=== PATIENT | male | born 1950 | race Caucasian/White ===

== ENCOUNTER 2017-11-26 14:48 | Inpatient (IN) | payer BC ==
[2017-11-26] MEDS ORDERED: Aspirin TAB* 325 MG PO ONE (15:19)
[2017-11-26 15:51] LABS: ABS Basophils 0.1 10^3/ul (0-0.2); ABS Eosinophils 0.1 10^3/ul (0-0.6); ABS Lymphocytes 1.9 10^3/ul (1.0-4.8); ABS Monocytes 0.8 10^3/ul (0-0.8); ABS Neutrophils 3.6 10^3/ul (1.5-7.7); ABS Nucleated RBC 0 10^3/ul; Eosinophil % 2.2 % (0-6); Hematocrit 47 % (42-52); Hemoglobin 16.3 g/dl (14.0-18.0); Lymphocyte % 28.9 % (25-47); Mean Corpuscular HGB Conc 35 g/dl (31-36); Mean Corpuscular Hemoglobin 31 pg (27-31); Mean Corpuscular Volume 89 fL (80-94); Mean Platelet Volume 9 um3 (7.4-10.4); Nucleated Red Blood Cells % 0.3; Platelet Count 203 10^3/ul (150-450); Red Blood Count 5.23 10^6/ul (4.0-5.4); Red Cell Distribution Width 13 % (10.5-15); White Blood Count 6.6 10^3/ul (3.5-10.8)
--- NOTE | 2017-11-26 15:54 | RAD ---
INDICATION: Chest pain. COMPARISON: Comparison is made with prior chest x-ray study from May 13, 2013. TECHNIQUE: A portable view of the chest was obtained. FINDINGS: Cardiac and mediastinal contours appear to be within normal limits. The lungs are clear. No pleural effusion is seen. IMPRESSION: NO EVIDENCE FOR ACUTE DISEASE.
[2017-11-26 16:00] LABS: INR 0.98 (0.77-1.02)
[2017-11-26] MEDS: Nitroglycerin TAB 0.4 MG* 0.4 MG TAB SL ONE ×2 (16:17→20:05)
[2017-11-26] MEDS ORDERED: Nitroglycerin TAB 0.4 MG* 0.4 MG TAB SL ONE (17:01)
[2017-11-26] MEDS ORDERED: Heparin DRIP 25,000 UNITS(*) 25,000 UNITS/500 ML BAG IVPB SCH (17:15)
[2017-11-26] MEDS ORDERED: Atorvastatin* 80 MG TAB PO ONE (17:18)
[2017-11-26] MEDS ORDERED: Ticagrelor* 90 MG TAB PO ONE (17:18)
[2017-11-26] MEDS ORDERED: Acetaminophen TAB* 325 MG PO PRN (17:20)
[2017-11-26] MEDS ORDERED: Heparin VIAL(*) 5000 UNITS/ML VIAL (FIVE THOUSAND) IV SCH (18:00)
[2017-11-26] MEDS ORDERED: Nitroglycerin TAB 0.4 MG* 0.4 MG TAB SL PRN (20:17)
[2017-11-26] MEDS: Metoprolol Tartrate TAB* 25 MG PO SCH (21:20)
--- NOTE | 2017-11-26 22:28 | ED ---
Alesia Warner Julia, scribed for Didier Ledesma MD on 11/26/17 at 1717 . HPI Chest Pain - HPI Summary HPI Summary: This patient is a 67 year old M presenting to [facility] with a chief complaint of constant but intermittent burning midsternal chest pain described since 4:00 today. Patient reports jaw pain. Patient denies SOB, nausea, or diaphoresis. The patient rates the pain 2/10 in severity currently but has been previously rate as a 6/10. Symptoms aggravated by nothing. Symptoms alleviated by nothing. Patient reports a aortic condition with irregular heart rhythm with missed beats. - History of Current Complaint Chief Complaint: EDChestPainROMI Time Seen by Provider: 11/26/17 15:09 Hx Obtained From: Patient Onset/Duration: Started Hours Ago Timing: Intermittent Pain Intensity: 6 Pain Scale Used: 0-10 Numeric Chest Pain Location: Mid Sternal Character: Burning Aggravating Factor(s): Nothing Alleviating Factor(s): Nothing Associated Signs and Symptoms: Positive: Other: - jaw pain - Allergy/Home Medications Allergies/Adverse Reactions: Allergies Allergy/AdvReac Type Severity Reaction Status Date / Time Penicillins Allergy Mild Rash Verified 02/24/14 12:00 Erythromycin AdvReac Intermediate Joint Pain Verified 02/24/14 12:00 enviromental Allergy Eyes Uncoded 07/28/15 09:43 Itchy/Swollen/Red/Watery PMH/Surg Hx/FS Hx/Imm Hx Endocrine/Hematology History: Denies: Hx Diabetes, Hx Thyroid Disease Cardiovascular History: Reports: Hx Hypertension, Other Cardiovascular Problems/ Disorders - "aortic condition" Denies: Hx Pacemaker/ICD, Hx Peripheral Vascular Disease Respiratory History: Denies: Hx Asthma, Hx Chronic Obstructive Pulmonary Disease (COPD), Other Respiratory Problems/Disorders - DENIES Musculoskeletal History: Denies: Hx Arthritis, Hx Rheumatoid Arthritis, Hx Osteoporosis Sensory History: Denies: Hx Cataracts, Hx Contacts or Glasses, Hx Glaucoma, Hx Hearing Aid Opthamlomology History: Denies: Hx Cataracts, Hx Contacts or Glasses, Hx Glaucoma Neurological History: Denies: Hx Headaches, Hx Seizures, Hx Transient Ischemic Attacks (TIA) Psychiatric History: Denies: Hx Anxiety, Hx Depression, Hx Panic Disorder - Cancer History Cancer Type, 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 Hx Chemotherapy: Yes - 40 yrs ago Hx Radiation Therapy: Yes - Surgical History Surgery Procedure, Year, and Place: NONE Infectious Disease History: No Infectious Disease History: Denies: History Other Infectious Disease, Traveled Outside the [place] in Last 30 Days - Social History Alcohol Use: Rare Alcohol Amount: 1 drink per year Substance Use Type: Reports: None Smoking Status (MU): Never Smoked Tobacco Review of Systems Negative: Skin Diaphoresis Positive: Chest Pain Negative: Shortness Of Breath Negative: Nausea Positive: Other - jaw pain All Other Systems Reviewed And Are Negative: Yes Physical Exam - Summary Physical Exam Summary: Appearance: The patient is well-nourished in no acute distress and in no acute pain. Skin: The skin is warm and dry and skin color reflects adequate perfusion. HEENT: The head is normocephalic and atraumatic. The pupils are equal and reactive. The conjunctivae are clear and without drainage. Nares are patent and without drainage. Mouth reveals moist mucous membranes and the throat is without erythema and exudate. The external ears are intact. The ear canals are patent and without drainage. The tympanic membranes are intact. Neck: the neck is supple with full range of motion and non-tender. There are no carotid bruits. There is no neck vein distension. Respiratory: Chest is non-tender. Lungs are clear to auscultation and breath sounds are symmetrical and equal. Cardiovascular: Heart is regular rate and rhythm. There is no murmur or rub auscultated. There is no peripheral edema and pulses are symmetrical and equal. Abdomen: The abdomen is soft and non-tender. There are normal bowel sounds heard in all four quadrants and there is no organomegaly palpated. Musculoskeletal: There is no back tenderness noted. Extremities are non-tender with full range of motion. There is good capillary refill. There is no peripheral edema or calf tenderness elicited. Neurological: Patient is alert and oriented to person, place and time. The patient has symmetrical motor strength in all four extremities. Cranial nerves are grossly intact. Deep tendon reflexes are symmetrical and equal in all four extremities. Psychiatric: The patient has an appropriate affect and does not exhibit any anxiety or depression Triage Information Reviewed: Yes Vital Signs On Initial Exam: Initial Vitals Temp Pulse Resp BP Pulse Ox 97.5 F 57 17 143/90 95 11/26/17 14:51 11/26/17 14:51 11/26/17 14:51 11/26/17 14:51 11/26/17 14:51 Vital Signs Reviewed: Yes Diagnostics - Vital Signs Vital Signs Temp Pulse Resp BP Pulse Ox 11/26/17 14:51 97.5 F 57 17 143/90 95 - Laboratory Lab Results: Lab Results 11/26/17 11/26/17 11/26/17 Range/Units 15:42 15:42 15:42 WBC 6.6 (3.5-10.8) 10^3/ul RBC 5.23 (4.0-5.4) 10^6/ul Hgb 16.3 (14.0-18.0) g/dl Hct 47 (42-52) % MCV 89 (80-94) fL MCH 31 (27-31) pg MCHC 35 (31-36) g/dl RDW 13 (10.5-15) % Plt Count 203 (150-450) 10^3/ul MPV 9 (7.4-10.4) um3 Neut % (Auto) 55.4 (38-83) % Lymph % (Auto) 28.9 (25-47) % [place]upe % (Auto) 12.5 H (1-9) % Eos % (Auto) 2.2 (0-6) % Baso % (Auto) 1.0 (0-2) % Absolute Neuts (auto) 3.6 (1.5-7.7) 10^3/ul Absolute Lymphs (auto) 1.9 (1.0-4.8) 10^3/ul Absolute Monos (auto) 0.8 (0-0.8) 10^3/ul Absolute Eos (auto) 0.1 (0-0.6) 10^3/ul Absolute Basos (auto) 0.1 (0-0.2) 10^3/ul Absolute Nucleated RBC 0 10^3/ul Nucleated RBC % 0.3 INR (Anticoag Therapy) (0.77-1.02) Sodium 140 (133-145) mmol/L Potassium 4.4 (3.5-5.0) mmol/L Chloride 109 (101-111) mmol/L Carbon Dioxide 27 (22-32) mmol/L Anion Gap 4 (2-11) mmol/L BUN 15 (6-24) mg/dL Creatinine 1.04 (0.67-1.17) mg/dL Est GFR ( Amer) 91.3 (>60) Est GFR (Non-Af Amer) 71.0 (>60) BUN/Creatinine Ratio 14.4 (8-20) Glucose 96 (70-100) mg/dL Lactic Acid (0.5-2.0) mmol/L Calcium 9.4 (8.6-10.3) mg/dL Total Bilirubin 0.80 (0.2-1.0) mg/dL AST 28 (13-39) U/L ALT 35 (7-52) U/L Alkaline Phosphatase 56 (34-104) U/L Troponin I 0.12 H* (<0.04) ng/mL B-Natriuretic Peptide 60 ( - 100) pg/mL Total Protein 6.5 (6.4-8.9) g/dL Albumin 4.1 (3.2-5.2) g/dL Globulin 2.4 (2-4) g/dL Albumin/Globulin Ratio 1.7 (1-3) 11/26/17 11/26/17 Range/Units 15:42 15:42 WBC (3.5-10.8) 10^3/ul RBC (4.0-5.4) 10^6/ul Hgb (14.0-18.0) g/dl Hct (42-52) % MCV (80-94) fL MCH (27-31) pg MCHC (31-36) g/dl RDW (10.5-15) % Plt Count (150-450) 10^3/ul MPV (7.4-10.4) um3 Neut % (Auto) (38-83) % Lymph % (Auto) (25-47) % [place] % (Auto) (1-9) % Eos % (Auto) (0-6) % Baso % (Auto) (0-2) % Absolute Neuts (auto) (1.5-7.7) 10^3/ul Absolute Lymphs (auto) (1.0-4.8) 10^3/ul Absolute Monos (auto) (0-0.8) 10^3/ul Absolute Eos (auto) (0-0.6) 10^3/ul Absolute Basos (auto) (0-0.2) 10^3/ul Absolute Nucleated RBC 10^3/ul Nucleated RBC % INR (Anticoag Therapy) 0.98 (0.77-1.02) Sodium (133-145) mmol/L Potassium (3.5-5.0) mmol/L Chloride (101-111) mmol/L Carbon Dioxide (22-32) mmol/L Anion Gap (2-11) mmol/L BUN (6-24) mg/dL Creatinine (0.67-1.17) mg/dL Est GFR ( Amer) (>60) Est GFR (Non-Af Amer) (>60) BUN/Creatinine Ratio (8-20) Glucose (70-100) mg/dL Lactic Acid 1.4 (0.5-2.0) mmol/L Calcium (8.6-10.3) mg/dL Total Bilirubin (0.2-1.0) mg/dL AST (13-39) U/L ALT (7-52) U/L Alkaline Phosphatase (34-104) U/L Troponin I (<0.04) ng/mL B-Natriuretic Peptide ( - 100) pg/mL Total Protein (6.4-8.9) g/dL Albumin (3.2-5.2) g/dL Globulin (2-4) g/dL Albumin/Globulin Ratio (1-3) Result Diagrams: 11/26/17 15:42 11/26/17 15:42 Lab Statement: Any lab studies that have been ordered have been reviewed, and results considered in the medical decision making process. - Radiology CXR Radiology Interpretation Completed By: Radiologist - No acute pathology. ED physician has reviewed this report. - EKG 14:59 Cardiac Rate: Bradycardia EKG Rhythm: Sinus Bradycardia - at 53 BPM Ectopy: PVCs EKG Interpretation: anterior ST depressions with reciprocal in aVR 16:45 Cardiac Rate: Bradycardia EKG Rhythm: Sinus Bradycardia - at 44 BPM Ectopy: PVCs EKG Comparison: Other - previous ST changes resolved Chest Pain Course/Dx - Course Course Of Treatment: Mr. Luis presented with chest pain for 11 hours and clear ischemic changes on ecg. He was given ASA and NTG and Dr. Randhawa was contacted. His first Troponin was indeterminant and he became pain free with normalization of his ecg. He is being admitted by Dr. Randhawa. - Diagnoses Provider Diagnoses: Acute coronary syndrome - Critical Care Time Critical Care Time: 30-74 min Discharge - Discharge Plan Condition: Stable Disposition: ADMITTED TO [facility] The documentation as recorded by the Alesia vuong Julia accurately reflects the service I personally performed and the decisions made by me, Didier Ledesma MD.
[2017-11-26] MEDS: Zolpidem TAB* 5 MG PO PRN (23:01)
[2017-11-26] MEDS: NS 0.9% 1000 ML* 1,000 ML IV SCH (23:02)
--- NOTE | 2017-11-27 04:39 | HP ---
CC: Dr. Kalpesh Araiza; Dr. Janell Rico * ADMISSION HISTORY AND PHYSICAL: DATE OF ADMISSION: 11/26/17 INDICATION FOR ADMISSION: Non-ST segment elevation myocardial infarction, chest pain. HISTORY OF PRESENT ILLNESS: The patient is a 67-year-old gentleman with a history of hypertension, history of mildly dilated ascending aorta who came to the emergency room because of typical chest pain symptoms. The patient states that he woke at 4 o'clock this morning with epigastric discomfort radiating up in to his chest. It also radiated to his left arm. He had some mild nausea associated with it. He said that his discomfort lasted on and off throughout the day. He did go out and shovel snow for a while and his chest pain got worse. The patient came inside and rested and his chest pain improved, but never completely resolved. The patient ultimately decided to come to the emergency room at approximately 4:30 this afternoon. On arrival to the emergency room, he was complaining of about 4/10 chest pain with the same discomfort that he had been having throughout the day. This was slightly less than its maximal intensity throughout the day. The patient's initial EKG demonstrated ST segment depressions in leads V2 and V3 as well as lead II. The patient was given a sublingual nitroglycerin with improvement of his discomfort. The patient's initial troponin level was 0.12 consistent with non- ST segment elevation myocardial infarction. The patient was given a second sublingual nitroglycerin and his pain essentially resolved. The patient's EKG an hour later demonstrated almost complete resolution of his ST segment depressions. PAST MEDICAL HISTORY: Significant for: 1. Hypertension. 2. Mildly dilated ascending aorta. His last echocardiogram within the last year demonstrated ascending aorta at 3.7. Other past medical history is significant for palpitations and sleep apnea. OUTPATIENT MEDICATIONS: 1. Metoprolol 25 mg b.i.d. 2. Benicar 50 mg a day. 3. Aspirin 81 mg a day. ALLERGIES: To PENICILLIN and ERYTHROMYCIN. FAMILY HISTORY: Father had bile duct cancer. Mother at age 90 of natural causes. SOCIAL HISTORY: He lives with his . 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 He denies smoking or alcohol. He exercises regularly 5 times a week. PHYSICAL EXAMINATION VITAL SIGNS: Height is 6 feet 2 inches, weight 220 pounds, temperature 97.5, heart rate is 57, respiratory rate is 17, oxygen saturation 95%, blood pressure 146/90. HEENT: Sclerae are anicteric. Oropharynx is pink without erythema. Carotids are 2+ without bruits. NECK: JVD is normal. Thyroid is normal. LUNGS: Clear to auscultation bilaterally. There is no dullness to percussion. CARDIAC EXAM: S1, S2 without any murmurs, rubs, or gallops. ABDOMEN: Soft, nontender, nondistended with normoactive bowel sounds. EXTREMITIES: Show no edema. He has 2+ pulses throughout. NEURO: The patient is awake, alert, and oriented . He moves all 4 extremities equally. LABORATORY STUDIES: CBC within normal limits. Chemistry is within normal limits. BUN 15, creatinine 1.01. AST and ALT are within normal limits. Troponin level is 0.12. BNP is normal at 60. IMPRESSION: This is a 67-year-old gentleman with a history of hypertension, mildly dilated ascending aorta who came to the emergency room because of typical anginal- type symptoms. The patient has been having these symptoms on and off throughout the day. His initial troponin level was 0.12. The patient' s chest pain nearly resolved with 2 sublingual nitroglycerin. PLAN: Plan is to admit the patient to the hospital. Continue to rule out his troponins. The patient will likely get a cardiac catheterization in the morning. The patient was given Brilinta and we started him on a heparin drip. The patient will get a catheterization in the morning. If he has any worsening chest pain or significant worsening of his EKG, cardiac catheterization will be done urgently. [id number]/[facility] #: [id number] [facility]ug[facility]
[2017-11-27 05:40] LABS: ABS Basophils 0.1 10^3/ul (0-0.2); ABS Eosinophils 0.1 10^3/ul (0-0.6); ABS Lymphocytes 1.5 10^3/ul (1.0-4.8); ABS Monocytes 0.9 10^3/ul (0-0.8); ABS Neutrophils 4.5 10^3/ul (1.5-7.7); ABS Nucleated RBC 0 10^3/ul; Eosinophil % 1.9 % (0-6); Hematocrit 43 % (42-52); Hemoglobin 14.7 g/dl (14.0-18.0); Lymphocyte % 21.4 % (25-47); Mean Corpuscular HGB Conc 35 g/dl (31-36); Mean Corpuscular Hemoglobin 31 pg (27-31); Mean Corpuscular Volume 90 fL (80-94); Mean Platelet Volume 9 um3 (7.4-10.4); Nucleated Red Blood Cells % 0.1; Platelet Count 180 10^3/ul (150-450); Red Blood Count 4.74 10^6/ul (4.0-5.4); Red Cell Distribution Width 13 % (10.5-15)
[2017-11-27 05:54] LABS: EGFR Non-African American 83.9 (>60)
[2017-11-27] MEDS ORDERED: Diazepam TAB(*) 5 MG PO ONE (07:20)
[2017-11-27] MEDS ORDERED: diPHENhydraMINE PO* 25 MG PO ONE (07:20)
[2017-11-27] MEDS ORDERED: fentaNYL* 50 MCG/ML 2 ML VIAL (100 MCG VIAL) ONE (07:27)
[2017-11-27] MEDS ORDERED: Heparin 2 UNITS/ML IVPREMIX* 3,000 ML IV ONE (07:27)
[2017-11-27] MEDS ORDERED: Midazolam* 1 MG/ML 10 ML VIAL (10 MG) ONE (07:27)
[2017-11-27] MEDS ORDERED: Lidocaine 1% INJ* 10 MG/ML 30 ML SDV ONE (07:28)
[2017-11-27] MEDS ORDERED: Iohexol 350 (CONTRAST) 200 ML MDV IV ONE ×4 (07:28→09:07)
[2017-11-27] MEDS: Valsartan TAB* 80 MG PO SCH (07:32)
[2017-11-27] MEDS: Metoprolol Tartrate TAB* 25 MG PO SCH ×4 (07:33→20:57)
[2017-11-27] MEDS: NS 0.9% 1000 ML* 1,000 ML IV SCH (07:36)
[2017-11-27] MEDS ORDERED: nitroGLYCERIN DRIP* 25,000 MCG/250 ML BTL ONE (08:37)
[2017-11-27] MEDS ORDERED: Heparin(*) 1000 UNIT/ML 10 ML VIAL CATH LAB IV ONE (08:38)
[2017-11-27] MEDS ORDERED: Eptifibatide IV (Load dose)(*) 2 MG/ML 10 ml VIAL ONE (09:50)
[2017-11-27] MEDS ORDERED: Ticagrelor* 90 MG TAB PO ONE (09:54)
[2017-11-27] MEDS ORDERED: Eptifibatide (*) 100 ML ONE ×2 (09:55→10:02)
[2017-11-27] MEDS ORDERED: Nitroglycerin TAB 0.4 MG* 0.4 MG TAB SL PRN (10:17)
[2017-11-27] MEDS ORDERED: NS 0.9% 1000 ML* 1,000 ML IV SCH (10:30)
[2017-11-27] MEDS: Eptifibatide (*) 100 ML IV SCH ×2 (14:07→20:17)
[2017-11-27] MEDS ORDERED: Atropine SYRINGE* 0.1 MG/ML 10 ML SYRINGE (1 MG) ONE (18:05)
[2017-11-27] MEDS: Ticagrelor* 90 MG TAB PO SCH (20:56)
[2017-11-28] MEDS: Eptifibatide (*) 100 ML IV SCH (03:14)
[2017-11-28 05:44] LABS: ABS Basophils 0 10^3/ul (0-0.2); ABS Eosinophils 0.1 10^3/ul (0-0.6); ABS Lymphocytes 1.5 10^3/ul (1.0-4.8); ABS Monocytes 1.2 10^3/ul (0-0.8); ABS Neutrophils 6.2 10^3/ul (1.5-7.7); ABS Nucleated RBC 0 10^3/ul; Eosinophil % 0.7 % (0-6); Hematocrit 45 % (42-52); Hemoglobin 15.2 g/dl (14.0-18.0); Lymphocyte % 16.7 % (25-47); Mean Corpuscular HGB Conc 34 g/dl (31-36); Mean Corpuscular Hemoglobin 31 pg (27-31); Mean Corpuscular Volume 91 fL (80-94); Mean Platelet Volume 9 um3 (7.4-10.4); Nucleated Red Blood Cells % 0.1; Platelet Count 187 10^3/ul (150-450); Red Blood Count 4.93 10^6/ul (4.0-5.4); Red Cell Distribution Width 13 % (10.5-15)
[2017-11-28 05:59] LABS: EGFR Non-African American 80.8 (>60)
--- NOTE | 2017-11-28 08:12 | CATH ---
STENT REPORT: DATE OF PROCEDURE: 11/27/17 PRIMARY CARE PHYSICIAN: Kalpesh Araiza MD. UNDERWATER WELDER: Janell Rico MD PROCEDURE: Diagnostic catheterization by Dr. Randhawa; stent placement circumflex OM, Dr. Youssef; Angio -Seal right common femoral artery. HISTORY: A 67-year-old male with [id number] infarct, diagnostic catheterization by Dr. Randhawa r evealed a severe circumflex OM-1 culprit stenosis, I was asked to evaluate for intervention. PROCEDURE ACCESS: Right common femoral artery placed by Dr. Randhawa, sheath 6F. MEDICATIONS: 1. IV Versed. 2. IV fentanyl. 3. IV heparin drip turned off. 4. Heparin 3000 units, 2000 units, 2000 units IV. 5. Double bolus IC Integrilin and IV Integrilin infusion. 6. Brilinta 90 mg p.o. 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 DIAGNOSTIC CATHETERS: For the diagnostic portion, see Dr. Randhawa's report. Intervention guide 6F VL 3.5, wire 14 BMW, 14 whisper wire. A 45-degree angle microcatheter was requ ired with a long whisper wire to selectively engage the continuation off the large marginal branch be yond the high-grade stenosis. After crossing with the wire, this was predilated with a 2.5 x 12 mm b alloon 6 atmospheres 20 seconds, a 3 x 12 synergy drug eluting stent was then deployed 11 atmospheres 24 seconds, post dilated with a noncompliant 3 x 12 mm balloon 18 atmospheres 30 seconds. This was followed by BOBBI 2 flow without evidence of dissection. The same 3 x 12 mm NC balloon was inflated t o 12 atmospheres for 247 seconds. He then received double bolus IC Integrilin and IV infusion was st arted. As there was no dissection, significant improvement in the antegrade flow with Integrilin, fur ther intervention was not performed. He was asymptomatic without ST changes. The right groin was im aged and closed Angeo-Seal. HEMODYNAMICS: Final aortic pressure 142/88. ANGIOGRAPHY: For the diagnostic portion see Dr. Randhawa's report. The left main is relatively short, the circumflex is large, not dominant, has a large first marginal branch which has a proximal 90% stenosis involving a 45-degree bend with a small side branch, distal flow is BOBBI 2. After stent placement and post dilatation, there was antegrade BOBBI 2 flow without d issection or evidence of thrombus. After prolonged inflation and Integrilin, flow is dramatically im proved; there is no residual stenosis, no dissection, no thrombus. CONCLUSION: Single-vessel disease circumflex OM with [id number] infarct, initial result with T IMI 2 flow improved with prolonged inflation and double bolus IC and IV Integrilin. [id number]/[facility] #: [id number]
--- NOTE | 2017-11-28 08:30 | CATH ---
CC: Dr. Janell Rico; Dr. Kalpesh Araiza; Dr. Jay Youssef CARDIAC CATHETERIZATION NOTE: DATE OF PROCEDURE: 11/27/17 PROCEDURE: Cardiac catheterization including coronary angiography, left heart catheterization, left ventriculogram. INDICATION FOR CARDIAC CATHETERIZATION: Acute coronary syndrome and xcp-VO-daspdce elevation myocard ial infarction. The patient is a 67-year-old gentleman with a history of hypertension who came to the emergency room yesterday with typical anginal type symptoms. His EKG had significant ST segment depressions in the inferior leads. The patient was treated medically and was asymptomatic overnight. Cardiac catheteri zation was recommended. The patient's troponin level was 12. PROCEDURE IN DETAIL: The patient was brought to the cardiac catheterization lab in a fasting state. Informed consent had been obtained prior to the procedure. All labs were reviewed. The patient was placed supine on the catheterization table. Both femoral areas were cleaned and draped in the usual fashion. 1% lidocaine was used for local anesthesia. The right femoral artery was entered via modif ied Seldinger technique and a 6-[place] sheath introducer was placed. The patient underwent left hear t catheterization, left ventriculogram, coronary angiography using a 6-[place] pigtail catheter, 6-Omar nch JL5 catheter, and a 6-[place] JR4 catheter. At the end of the procedure, the patient went on to h ave an angioplasty and stenting of his left circumflex artery. Please see Dr. Youssef' notes for thos e details. FINDINGS: HEMODYNAMICS: Central aortic blood pressure 127/72 with a mean of 99. Left ventricular pressure 130 /5 with an end-diastolic pressure of 21. LEFT VENTRICULOGRAM: Left ventricle was normal in size. Overall systolic function of the left ventr icle is mildly reduced. Estimated ejection fraction 40%. There was global hypokinesis. There was n o mitral regurgitation. Aortic valve was normal. Ascending aorta was mildly dilated at 3.8 cm. SOFYA NARY ARTERIES: 1. Left main: The left main was normal in size. It bifurcated into the LAD and circumflex. There was no evidence of stenosis. 2. Left anterior descending artery: The LAD was normal in size. It gave off two diagonal vessels. The proximal LAD had mild plaquing. Grade of stenosis was 10%. The mid and distal LAD were without disease. Diagonal vessels were without disease. 3. Left circumflex artery: The circumflex artery was normal in size. It gave off three obtuse mana inal branches. The proximal and mid portion of the left circumflex artery had mild disease. The fir st obtuse marginal branch off the left circumflex artery had an eccentric 99% stenosis. The OM2 and OM3 vessel off the left circumflex artery was without disease. 4. Right coronary artery: The RCA was a large dominant vessel given off the PDA. There was no evide nce of stenosis. IMPRESSION: 1. Mildly reduced LV systolic function. 2. Mildly dilated ascending aorta at 3.8 cm. 3. Critical stenosis of the OM1 vessel off the left circumflex artery with a 99% stenosis. 4. Mild disease to the proximal LAD and left circumflex artery. RECOMMENDATION: The patient will undergo angioplasty and stenting of his OM1 vessel off the left cir cumflex. [id number]/[facility] #: [id number]
[2017-11-28] MEDS: Aspirin Low Dose CHEW TAB* 81 MG PO SCH (08:39)
[2017-11-28] MEDS: Metoprolol Tartrate TAB* 25 MG PO SCH ×2 (08:39→21:46)
[2017-11-28] MEDS: Valsartan TAB* 80 MG PO SCH (08:39)
[2017-11-28] MEDS: Ticagrelor* 90 MG TAB PO SCH ×2 (08:39→21:46)
--- NOTE | 2017-11-28 17:11 | ECHO ---
Patient: SAMAN REINOSO [facility] Rec#: [id number] : 1950 Date: 11/28/2017 Age: 67y Height: 187.96 cm / 74.0 in Weight: 105.69 kg / 232.9 lbs Sex: M BSA: 2.32 Room#: [facility] Admit Date#: 11/26/2017 Type: Inpatient Referring: Jaior Randhawa MD Reading: Jairo Randhawa MD Boiler Tube Blower: Mily Garrido RDCS CC: Adeel Araiza MD Transthoracic Echocardiogram Indication: NSTEMI, s/p PCI BP: 128/79 HR: 72 Rhythm: NSR with PVCs Findings History: HTN, mildly dilated ascending aorta measuring 3.7 cm, ABRAHAM with CPAP, PVCs. Technical Comments: The study quality is fair. The study is technically limited due to poor acoustic windows. Completed at 1135. Left Ventricle: The left ventricular chamber size is normal. There is no left ventricular hypertrophy. Left ventricular systolic function is at the lower limits of normal. The estimated ejection fraction is 50-55%. Abnormal left ventricular diastolic function is observed. Abnormal left ventricular diastolic filling is observed, consistent with impaired relaxation. The mid anterolateral, mid inferolateral, and apical inferior wall segments are hypokinetic (score 2). Overall wallmotion score index is 2.00 Left Atrium: The left atrium is mildly dilated. Right Ventricle: Moderator Band present. The right ventricular cavity size is normal. The right ventricular global systolic function is normal. Right Atrium: The right atrium is mildly dilated. Aortic Valve: The aortic valve is trileaflet. The aortic valve leaflets are mildly thickened. There is no evidence of aortic regurgitation. There is no evidence of aortic stenosis. Mitral Valve: The mitral valve leaflets are mildly thickened. There is trace to mild mitral regurgitation. There is no evidence of mitral stenosis. Tricuspid Valve: The tricuspid valve leaflets are normal. There is trace to mild tricuspid regurgitation. The right ventricular systolic pressure is estimated at 29 mmHg. No pulmonary hypertension is noted. There is no tricuspid stenosis. Pulmonic Valve: The pulmonic valve appears normal. There is a trace pulmonic regurgitation. There is no pulmonic stenosis. Pericardium: There is no significant pericardial effusion. A pericardial fat pad is visualized. Aorta: There is mild dilatation of the ascending aorta.3.9 cm There is no dilatation of the aortic arch. There is mild dilatation of the aortic root. Pulmonary Artery: The main pulmonary artery appears normal. Venous: The inferior vena cava is dilated. There is a greater than 50% respiratory change in the inferior vena cava dimension. Conclusions Left ventricular systolic function is at the lower limits of normal. The estimated ejection fraction is 50-55%. The mid anterolateral, mid inferolateral, and apical inferior wall segments are hypokinetic (score 2). There is no left ventricular hypertrophy. The right ventricular global systolic function is normal. There is no evidence of aortic stenosis. There is trace to mild mitral regurgitation. There is trace to mild tricuspid regurgitation. The right ventricular systolic pressure is estimated at 29 mmHg. There is mild dilatation of the ascending aorta.3.9 cm Compared to study of 11/20/16, the LV functions shows new wall motion abnormalities. Asc aorta is slighlty larger (was 3.7 cm) Measurements Name Value Normal Range RVIDd (AP) 2D 3.2 cm (0.9 - 2.6) RVDdMajor (2D) 3.3 cm (2.2 - 4.4) RAd ISD 4CH 5.5 cm (3.4 - 4.9) RA (A4C)W 4.2 cm (2.9 - 4.6) IVSd (2D) 0.9 cm (0.6 - 1) LVPWd (2D) 0.9 cm (0.6 - 1) LVIDd (2D) 4.8 cm (3.6 - 5.4) LVIDs (2D) 3.1 cm - Aortic Annulus 1.9 cm (1.4 - 2.6) Ao root diameter (2D) 3.8 cm (2.1 - 3.5) Ascending Ao 3.9 cm (2.1 - 3.4) Aortic arch 2.8 cm (1.8 - 3.4) LA dimension (AP) 2D 3.9 cm (2.3 - 3.8) LAd ISD 4CH 5.9 cm (2.9 - 5.3) LA ISD 4CH W 4.1 cm (2.5 - 4.5) Name Value Normal Range LA ESV SP 4CH (A/L) 69 ml - LA ESV SP 2CH (A/L) 69 ml - LA ESV BP (A/L) 75 ml - LA ESV BP (A/L) index 32.46 ml/m2 - LA ESV SP 4CH (MOD) 60 ml - LA ESV SP 2CH (MOD) 65 ml - Name Value Normal Range MV E-wave Vmax 0.62 m/sec - MV deceleration time 241.5 msec - MV A-wave Vmax 0.91 m/sec - MV E:A ratio 0.68 ratio - LV septal e' Vmax 0.06 m/sec - LV lateral e' Vmax 0.1 m/sec - LV E:e' septal ratio 10.33 ratio - LV E:e' lateral ratio 6.2 ratio - Name Value Normal Range AV Vmax 1.4 m/sec - AV VTI 32.22 cm - AV peak gradient 7.66 mmHg - AV mean gradient 4.59 mmHg - LVOT Vmax 0.94 m/sec - LVOT VTI 19.83 cm - LVOT peak gradient 3.52 mmHg - LVOT mean gradient 1.84 mmHg - KIRA Vmax 1 m/sec - Name Value Normal Range TR Vmax 2.3 m/sec - TR peak gradient 21 mmHg - RAP 8 mmHg - RVSP 29 mmHg - IVC diameter 2.2 cm - Name Value Normal Range PV Vmax 1.01 m/sec - PV peak gradient 4.12 mmHg - Wallmotion BAS Not Seen BA Not Seen BAL Not Seen MEGAN Not Seen BI Not Seen BIS Not Seen MAS Not Seen MA Not Seen MAL Hypokinetic MIL Hypokinetic WY Not Seen MIS Not Seen Not Seen AA Not Seen AL Not Seen AI Hypokinetic APEX Not Seen
[2017-11-28] MEDS: Zolpidem TAB* 5 MG PO PRN (21:49)
[2017-11-29 05:06] LABS: ABS Basophils 0 10^3/ul (0-0.2); ABS Eosinophils 0.2 10^3/ul (0-0.6); ABS Lymphocytes 1.4 10^3/ul (1.0-4.8); ABS Monocytes 1.1 10^3/ul (0-0.8); ABS Neutrophils 5.1 10^3/ul (1.5-7.7); ABS Nucleated RBC 0 10^3/ul; Hematocrit 44 % (42-52); Hemoglobin 15.2 g/dl (14.0-18.0); Lymphocyte % 18.5 % (25-47); Mean Corpuscular HGB Conc 34 g/dl (31-36); Mean Corpuscular Hemoglobin 31 pg (27-31); Mean Corpuscular Volume 90 fL (80-94); Mean Platelet Volume 9 um3 (7.4-10.4); Nucleated Red Blood Cells % 0.1; Platelet Count 176 10^3/ul (150-450); Red Blood Count 4.91 10^6/ul (4.0-5.4); Red Cell Distribution Width 13 % (10.5-15); White Blood Count 7.8 10^3/ul (3.5-10.8)
[2017-11-29] MEDS: Valsartan TAB* 80 MG PO SCH (09:17)
[2017-11-29] MEDS: Ticagrelor* 90 MG TAB PO SCH ×2 (09:17→22:03)
[2017-11-29] MEDS: Aspirin Low Dose CHEW TAB* 81 MG PO SCH (09:17)
[2017-11-29] MEDS: Metoprolol Tartrate TAB* 25 MG PO SCH ×2 (09:17→22:03)
[2017-11-29] MEDS ORDERED: Magnesium Sulfate 2 GM IV* 2 GM/50 ML BAG IVPB ONE (12:50)
[2017-11-29 15:41] LABS: EGFR Non-African American 76.1 (>60)
[2017-11-29] MEDS: Potassium Chloride LIQUID* 20 MEQ PACKET PO SCH ×3 (15:56→22:02)
[2017-11-29] MEDS: Zolpidem TAB* 5 MG PO PRN (22:03)
[2017-11-30 05:48] LABS: ABS Basophils 0.1 10^3/ul (0-0.2); ABS Eosinophils 0.2 10^3/ul (0-0.6); ABS Lymphocytes 1.4 10^3/ul (1.0-4.8); ABS Neutrophils 4.7 10^3/ul (1.5-7.7); ABS Nucleated RBC 0 10^3/ul; Eosinophil % 2.9 % (0-6); Hematocrit 47 % (42-52); Hemoglobin 15.8 g/dl (14.0-18.0); Lymphocyte % 18.8 % (25-47); Mean Corpuscular HGB Conc 33 g/dl (31-36); Mean Corpuscular Hemoglobin 30 pg (27-31); Mean Corpuscular Volume 91 fL (80-94); Mean Platelet Volume 9 um3 (7.4-10.4); Nucleated Red Blood Cells % 0.1; Platelet Count 183 10^3/ul (150-450); Red Blood Count 5.21 10^6/ul (4.0-5.4); Red Cell Distribution Width 13 % (10.5-15); White Blood Count 7.4 10^3/ul (3.5-10.8)
[2017-11-30 06:02] LABS: EGFR Non-African American 73.5 (>60)
[2017-11-30 09:03] VITALS: BP 133/63
[2017-11-30] MEDS: Aspirin Low Dose CHEW TAB* 81 MG PO SCH (09:26)
[2017-11-30] MEDS: Metoprolol Tartrate TAB* 25 MG PO SCH (09:26)
[2017-11-30] MEDS: Valsartan TAB* 80 MG PO SCH (09:26)
[2017-11-30] MEDS: Ticagrelor* 90 MG TAB PO SCH (09:26)
--- NOTE | 2017-12-01 02:27 | DS ---
DISCHARGE SUMMARY: DATE OF ADMISSION: 11/26/17 DATE OF DISCHARGE: 11/30/17 REFERRING PHYSICIAN: Dr. Rico and Dr. Kalpesh Araiza. HOSPITAL COURSE: The patient was admitted to the hospital on 11/26/17 with unstable angina. He subsequently underwent cardiac catheterization on 11/27/17 where a severe OM1 lesion was found and then he underwent drug-eluting stent placement to a severe OM1 lesion. The remainder of his cardiac catheterization on that date showed an ejection fraction of 40%, left main normal, LAD prox 10% , OM1 99% stenosis for which he underwent drug-eluting stent, RCA without significant stenosis, mildly dilated ascending aorta at 3.8 cm. Post PCI, the patient did well. He underwent transthoracic echocardiogram on , which showed low normal left ventricular ejection fraction of 50% to 55 % with mild left atrial dilatation, mild right atrial dilatation, and mild dilatation of the ascending aorta at 3.9 cm with functionally benign heart valves. The patient was noted to have PVCs and did receive some potassium for a low normal potassium of 3.6. Review of all telemetry showed no ventricular tachycardia, but fairly frequent PVCs. When I reviewed with the patient as well as the admitting talent acquisition consultant, Dr. Randhawa, the patient does have a history of PVCs with negative EP evaluation in the past so these PVCs were not felt to be a new phenomenon as well as the patient has normal LV function and will continue his beta-jovani. It was felt suitable on the day of discharge for the patient to be discharged home with which he was in strong agreement. He had no further chest pain or shortness of breath. Exam including RFA site benign. Please see also chart documentation for further details. CONDITION ON DISCHARGE: Stable. DISCHARGE MEDICATIONS: 1. Aspirin 81 mg once a day. 2. Lopressor 25 mg p.o. b.i.d. 3. Nitroglycerin sublingual p.r.n. chest pain. 4. Brilinta 90 mg p.o. b.i.d. 5. Diovan 80 mg p.o. daily. 6. Lipitor 40 mg p.o. q.h.s. These are new medications for the patient. He apparently has been prescribed Xanax p.r.n. to take as well at home. The patient has also been referred for [facility] for cardiac rehabilitation. I have discussed the case in detail with the patient and he is in agreement with these recommendations. We would like him to follow up with his primary care physician, Dr. Kalpesh Araiza as well as his talent acquisition consultant, Dr. Janell Rico in the next week or so and I have also reviewed the patient's case with the inpatient covering talent acquisition consultant, Dr. Randhawa. This is a summarized version of a complex medical admission. Please refer to chart documentation for further details as desired. [id number]/[facility] #: [id number] MTDD
== END 2017-11-30 12:15 | disposition home or self-care (01) | DRG 174 ==
LOC: ED 14:48 → ICU 17:04 → MEDTELE 11-28 09:02
PROVIDERS: ADMIT Specialist; ATTEND Specialist
PROC: 4A023N7 Measurement of Cardiac Sampling and Pressure, Left Heart, Percutaneous Approach (ICD-10-PCS; 2017-11-27)
PROC: B2151ZZ Fluoroscopy of Left Heart using Low Osmolar Contrast (ICD-10-PCS; 2017-11-27)
PROC: 0270346 Dilation of Coronary Artery, One Artery, Bifurcation, with Drug-eluting Intraluminal Device, Percutaneous Approach (ICD-10-PCS; 2017-11-27)
PROC: 3E033PZ Introduction of Platelet Inhibitor into Peripheral Vein, Percutaneous Approach (ICD-10-PCS; 2017-11-27)
PROC: B2111ZZ Fluoroscopy of Multiple Coronary Arteries using Low Osmolar Contrast (ICD-10-PCS; principal; 2017-11-27 07:45)
DX: I21.4 Non-ST elevation (NSTEMI) myocardial infarction (principal); E87.6 Hypokalemia; I77.819 Aortic ectasia, unspecified site; I10 Essential (primary) hypertension; I25.110 Atherosclerotic heart disease of native coronary artery with unstable angina pectoris; I49.3 Ventricular premature depolarization; I51.7 Cardiomegaly; G47.30 Sleep apnea, unspecified; Z88.1 Allergy status to other antibiotic agents; Z88.0 Allergy status to penicillin; Z80.0 Family history of malignant neoplasm of digestive organs; Z79.82 Long term (current) use of aspirin; Z79.02 Long term (current) use of antithrombotics/antiplatelets
CPT/HCPCS: 36415; 71045; 80048; 80053; 83605; 83735; 83880; 84484; 85025; 85610; 85730; 87641; 93005; 93306; 93458; 99156; 99157; 99283; A9270-GY; C1725; C1760; C1769; C1876; C1887; C9600-LC; J0461; J1327; J1644; J2250; J3010; J3475

== ENCOUNTER 2018-05-25 10:37 | Inpatient (IN) | payer BC, OTHER ==
[2018-05-25] MEDS ORDERED: Acetaminophen TAB* 325 MG PO ONE (10:59)
[2018-05-25] MEDS ORDERED: NS 0.9% 1000 ML* 3,000 ML IV ONE (11:08)
[2018-05-25] MEDS ORDERED: Ciprofloxacin 400MG IVPREMIX(* 400 MG/200 ML BAG IVPB ONE (11:08)
[2018-05-25 11:28] LABS: ABS Basophils 0 10^3/ul (0-0.2); ABS Eosinophils 0 10^3/ul (0-0.6); ABS Lymphocytes 0.4 10^3/ul (1.0-4.8); ABS Monocytes 0.4 10^3/ul (0-0.8); ABS Neutrophils 10.2 10^3/ul (1.5-7.7); ABS Nucleated RBC 0 10^3/ul; Eosinophil % 0.2 % (0-6); Hematocrit 45 % (42-52); Hemoglobin 15.2 g/dl (14.0-18.0); Mean Corpuscular HGB Conc 34 g/dl (31-36); Mean Corpuscular Hemoglobin 31 pg (27-31); Mean Corpuscular Volume 91 fL (80-94); Mean Platelet Volume 8.8 um3 (7.4-10.4); Nucleated Red Blood Cells % 0; Platelet Count 159 10^3/ul (150-450); Red Blood Count 4.93 10^6/ul (4.00-5.40); Red Cell Distribution Width 15 % (10.5-15)
[2018-05-25 11:37] LABS: INR 1.11 (0.77-1.02)
[2018-05-25 11:50] LABS: Urine Appearance Cloudy; Urine Blood 1+ (Negative); Urine Color Amber; Urine Ketones Trace (Negative); Urine Protein 1+(30 mg/dL) (Negative); Urine Specific Gravity 1.026 (1.010-1.030); Urine Urobilinogen Negative (Negative)
[2018-05-25 11:51] LABS: EGFR Non-African American 71.6 (>60)
[2018-05-25] MEDS ORDERED: Ondansetron INJ* 2 MG/ML VIAL IV PRN (13:05)
[2018-05-25] MEDS ORDERED: Morphine VIAL* 4 MG/ML VIAL (1 ml vial) IV PRN (13:05)
[2018-05-25] MEDS ORDERED: oxyCODONE/Acetamin 5/325 MG* TAB PO PRN (13:05)
[2018-05-25] MEDS ORDERED: Colchicine* 0.6 MG TAB PO PRN (13:07)
[2018-05-25] MEDS ORDERED: Nitroglycerin TAB 0.4 MG* 0.4 MG TAB SL PRN (13:07)
[2018-05-25] MEDS ORDERED: NS 0.9% 1000 ML* 1,000 ML IV ONE (13:08)
[2018-05-25] MEDS: Ciprofloxacin 400MG IVPREMIX(* 400 MG/200 ML BAG IVPB SCH (16:03)
[2018-05-25] MEDS: Heparin VIAL(*) 5000 UNITS/ML VIAL (FIVE THOUSAND) SUBCUT SCH ×2 (16:03→21:09)
[2018-05-25] MEDS: Acetaminophen TAB* 325 MG PO PRN ×2 (16:48→21:05)
[2018-05-25] MEDS: Ticagrelor* 90 MG TAB PO SCH (19:32)
[2018-05-25] MEDS: Metoprolol Tartrate TAB* 25 MG PO SCH (19:33)
[2018-05-25] MEDS ORDERED: Ibuprofen TAB* 200 MG PO PRN (23:12)
[2018-05-25] MEDS ORDERED: Ibuprofen TAB* 200 MG ONE (23:14)
--- NOTE | 2018-05-25 23:14 | PN ---
Hospitalist Progress Note Date of Service: 05/25/18 Paged by RN regarding need for breakthrough anti-pyretics. Ordered Ibuprofen 200 mg PO Q6H PRN for breakthrough fevers with Tylenol
--- NOTE | 2018-05-25 23:38 | HP ---
CC: Dr. Araiza; Dr. Rico; Dr. Painter HISTORY AND PHYSICAL: DATE OF ADMISSION: 05/25/18 TIME OF MY EVALUATION: 12:30 p.m. PRIMARY CARE PROVIDER: Dr. Kalpesh Araiza. OUTPATIENT CITY DISTRIBUTION CLERK: Dr. Janell Rico. OUTPATIENT UROLOGIST: Dr. Yong Painter. CHIEF COMPLAINT: Fevers/chills/dysuria. HISTORY OF PRESENT ILLNESS: Mr. Richards is a pleasant 68-year-old gentleman with a past medical history that includes coronary disease, mildly dilated ascending aorta, and hypertension as well as mild urinary retention who presents with 1 day of lower abdominal pain. He rates the pain as 8 to 10 in severity and it is associated with urination. He says that there is a burning sensation and a stabbing sensation. The patient has tried Advil/Aleve prior to arrival, but this is not helping. He swam in the [place] in preparation for a triathlon recently. He was wondering if that might have caused a urinary tract infection. The patient is febrile at 100 degrees Fahrenheit at admission, though his other vital signs were reassuring. His laboratory work was concerning for an elevated white blood cell count and he was referred for admission secondary to his symptomatology. The patient was dosed with ciprofloxacin in the emergency room. He was hydrated with ample amount of normal saline. He is being placed on observation status for symptom control with likely discharge tomorrow with oral antibiotics. Of note, Dr. Painter communicated with Dr. Varela of the emergency department regarding this case and is available for consultation if there is need. Dr. Painter has not been formally consulted. PAST MEDICAL HISTORY: 1. Hypertension. 2. Mildly dilated ascending aorta - last echocardiogram within the year demonstrating an ascending aorta at less than 4 cm. 3. Palpitations. 4. Sleep apnea. 5. Status post cardiac catheterization in November 2017 where a severe OM1 lesion was found and he had a drug-eluting stent placed. At that time, the cardiac catheterization showed an ejection fraction of 40%. OUTPATIENT MEDICATIONS: 1. Allopurinol 100 mg by mouth daily. 2. Aspirin enteric coated 81 mg by mouth daily. 3. Lipitor 40 mg by mouth daily. 4. Colchicine 0.6 mg daily as needed. 5. Losartan 25 mg by mouth daily. 6. Lopressor 12.5 mg by mouth twice daily. 7. Nitroglycerin tabs 0.4 mg sublingually q.5 minutes p.r.n. chest pain. 8. Brilinta 90 mg by mouth twice daily. ALLERGIES: ERYTHROMYCIN/PENICILLIN. FAMILY HISTORY: Father had bile duct cancer. Mother at age 90 secondary to heart disease or natural causes. 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 He lives in [place] with his , who accompanies him. He is a full code. He is a nonsmoker, nondrinker. 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 PHYSICAL EXAMINATION On admission: GENERAL APPEARANCE: Elderly man, appears stated age, no apparent distress. Awake, alert, and oriented x3, and answers questions appropriately. VITAL SIGNS: Temperature 100 degrees Fahrenheit, over 200 pounds, heart rate 50s to 60s, respirations 16 to 18 and unlabored, oxygen saturation 95% on room air, blood pressure 140s/80s. HEENT: Oropharynx is clear. Mucous membranes are moist. No posterior pharyngeal erythema or exudate. No cervical adenopathy. LYMPH: No adenopathy appreciated. CHEST: Clear breath sounds anteriorly, posteriorly. HEART: Regular rate and rhythm. No murmurs appreciated. ABDOMEN: Soft and nontender except for the suprapubic region where it is tender. RECTAL: Exam was deferred and refer to the emergency room notes for their report on this aspect of the examination, which they did not deem needed repeating. EXTREMITIES: Without clubbing, cyanosis, or edema. Good muscle bulk throughout. Good distal pulses. Extremities are well perfused. NEURO: No focal abnormalities. Moves all extremities equally. PSYCH: Normal affect. No acute anxiety or depression. ADMISSION DATA: White blood cell count modestly elevated at 11.0, platelets 159, hemoglobin 15.2. INR 1.11. Blood chemistry is normal except for glucose at 135 (nonfasting). Lactic acid normal at 2. Total bilirubin 2.7. The remainder of his LFTs unremarkable. Albumin and globulin are 4.1 and 2.4, respectively. Urinalysis: Grossly abnormal with 3+ leukocyte esterase, 3+ urine wbc's, 1+ urine rbc's, 2+ urine bacteria noted. IMAGING: Bladder ultra scan is pending. IMPRESSION AND PLAN: Mr. Richards is a 68-year-old gentleman who is admitted with prostatitis/lower urinary tract infection and systemic symptomatology including a fever and leukocytosis. He is uncomfortable with urination. He is appreciating hydration and analgesia. Placed the patient on observation status. Initiate IV antibiotics for starters with intention to transition to oral antibiotics tomorrow with a likely discharge. Aggressively hydrate the patient and watch urine output including a postresidual bladder scan. Continue outpatient medications as currently prescribed. DVT prophylaxis as ordered - subcu heparin 5000 units t.i.d. Analgesia with Percocet or IV opiates or acetaminophen alone, depending on level of the patient's discomfort. Urology is not consulted because of simplicity of case so far, but is available should the patient's clinical course requires that. Blood cultures are drawn and pending from the emergency room. We will follow those and see if they demonstrate a specific organism. Urine cultures will be followed as well. Full code. Regular diet as the patient tolerates. TIME SPENT: Total time taken to admit Mr. Richards was 60 minutes, greater than half that time spent at the bedside going over the history and physical examination face- to-face with the patient. [id number]/[facility] #: [id number] MAX
[2018-05-26] MEDS: Ciprofloxacin 400MG IVPREMIX(* 400 MG/200 ML BAG IVPB SCH ×2 (02:14→13:55)
[2018-05-26] MEDS: Heparin VIAL(*) 5000 UNITS/ML VIAL (FIVE THOUSAND) SUBCUT SCH ×3 (05:34→21:02)
[2018-05-26] MEDS ORDERED: NS 0.9% 1000 ML* 1,000 ML IV ONE ×2 (07:27→18:21)
[2018-05-26 08:13] LABS: ABS Basophils 0 10^3/ul (0-0.2); ABS Eosinophils 0 10^3/ul (0-0.6); ABS Lymphocytes 0.2 10^3/ul (1.0-4.8); ABS Monocytes 0.7 10^3/ul (0-0.8); ABS Neutrophils 8.8 10^3/ul (1.5-7.7); ABS Nucleated RBC 0 10^3/ul; Eosinophil % 0.3 % (0-6); Hematocrit 43 % (42-52); Hemoglobin 14.4 g/dl (14.0-18.0); Lymphocyte % 2.5 % (25-47); Mean Corpuscular HGB Conc 34 g/dl (31-36); Mean Corpuscular Hemoglobin 31 pg (27-31); Mean Corpuscular Volume 92 fL (80-94); Mean Platelet Volume 9.3 um3 (7.4-10.4); Nucleated Red Blood Cells % 0.1; Platelet Count 120 10^3/ul (150-450); Red Blood Count 4.64 10^6/ul (4.00-5.40); Red Cell Distribution Width 15 % (10.5-15); White Blood Count 9.8 10^3/ul (3.5-10.8)
[2018-05-26 08:30] LABS: EGFR Non-African American 76.7 (>60)
[2018-05-26] MEDS: Metoprolol Tartrate TAB* 25 MG PO SCH ×3 (08:44→21:21)
[2018-05-26] MEDS: Atorvastatin* 40 MG TAB PO SCH (08:45)
[2018-05-26] MEDS: Aspirin EC TAB* 81 MG TAB.EC PO SCH (08:45)
[2018-05-26] MEDS: Allopurinol TAB* 100 MG PO SCH (08:45)
[2018-05-26] MEDS: Losartan TAB* 25 MG PO SCH (08:45)
[2018-05-26] MEDS: Ticagrelor* 90 MG TAB PO SCH ×2 (08:45→21:02)
[2018-05-26] MEDS: Ketorolac INJ* 30 MG/ML 1 ML VIAL IV PUSH PRN ×2 (08:46→18:08)
[2018-05-26] MEDS: Acetaminophen TAB* 325 MG PO PRN (18:08)
--- NOTE | 2018-05-26 18:59 | PN ---
Subjective Date of Service: 05/26/18 Interval History: . Initially felt better. Then, high fever (103+) and BCX results for Klebsiella PNA in Blood and Urine. Expanded ABX coverage to cipro + ceftriaxone additional 2L NS bolus IV toradol PO Tylenol Bladder scan with minimal residual... Discussed situation with Mr. Richards and ordered full admit. Explained he will be inpatient until cultures clear. Re-ordered BCX for tomorrow... Routine labs as well. updated RN at bedside... Will ask Dr. Howard to see patient on Monday (ID consultation) . Family History: Unchanged from Admission Social History: Unchanged from Admission Past Medical History: Unchanged from Admission Objective Active Medications: . Acetaminophen (Tylenol Tab*) 650 mg PO Q4H PRN PRN Reason: FEVER/PAIN Last Admin: 05/26/18 18:08 Dose: 650 mg Allopurinol (Zyloprim Tab*) 100 mg PO QAM [facility] Last Admin: 05/26/18 08:45 Dose: 100 mg Aspirin (Aspirin Ec Tab*) 81 mg PO DAILY [facility] Last Admin: 05/26/18 08:45 Dose: 81 mg Atorvastatin Calcium (Lipitor*) 40 mg PO DAILY [facility] Last Admin: 05/26/18 08:45 Dose: 40 mg Colchicine (Colcrys*) 0.6 mg PO DAILY PRN PRN Reason: PER PROTOCOL Heparin Sodium (Porcine) (Heparin Vial(*)) 5,000 units SUBCUT Q8HR [facility] Last Admin: 05/26/18 13:55 Dose: 5,000 units Ciprofloxacin/Dextrose (Cipro 400 Mg Ivpremix(*)) 400 mg in 200 mls @ 200 mls/ hr IVPB Q12H [facility] Last Admin: 05/26/18 13:55 Dose: 200 mls/hr Sodium Chloride (Ns 0.9% 1000 Ml*) 1,000 mls @ 1,000 mls/hr IV .PER RATE ONE Stop: 05/26/18 19:20 Last Admin: 05/26/18 18:38 Dose: 1,000 mls/hr Ceftriaxone Sodium 1 gm/ (Sodium Chloride) 50 mls @ 200 mls/hr IVPB Q24H [facility] Ketorolac Tromethamine (Toradol Inj*) 30 mg IV PUSH Q6H PRN PRN Reason: PAIN Last Admin: 05/26/18 18:08 Dose: 30 mg Losartan Potassium (Cozaar Tab*) 25 mg PO DAILY [facility] Last Admin: 05/26/18 08:45 Dose: 25 mg Metoprolol Tartrate (Lopressor Tab*) 12.5 mg PO BID [facility] Last Admin: 05/26/18 08:48 Dose: Not Given Morphine Sulfate (Morphine Vial*) 2 mg IV Q4H PRN PRN Reason: PAIN Nitroglycerin (Nitroglycerin Tab 0.4 Mg*) 0.4 mg SL Q5M PRN PRN Reason: PAIN - CHEST Ondansetron HCl (Zofran Inj*) 4 mg IV Q4H PRN PRN Reason: NAUSEA/VOMITING Oxycodone/Acetaminophen (Percocet 5/325 Tab*) 1 tab PO Q4H PRN PRN Reason: Pain Ticagrelor (Brilinta*) 90 mg PO BID [facility] Last Admin: 05/26/18 08:45 Dose: 90 mg . Vital Signs - 8 hr 05/26/18 05/26/18 05/26/18 11:20 11:50 15:07 Temperature 97.4 F 98.9 F Pulse Rate 59 56 Respiratory 18 22 Rate Blood Pressure 110/52 127/64 (mmHg) O2 Sat by Pulse 99 Oximetry Oxygen Devices in Use Now: None Appearance: NAD - but sweaty Eyes: No Scleral Icterus Ears/Nose/Mouth/Throat: NL Teeth, Lips, Gums, Clear Oropharnyx Neck: NL Appearance and Movements; NL JVP Respiratory: Symmetrical Chest Expansion and Respiratory Effort, Clear to Auscultation Cardiovascular: NL Sounds; No Murmurs; No JVD Abdominal: NL Sounds; No Tenderness; No Distention Lymphatic: No Cervical Adenopathy Extremities: No Edema Skin: No Rash or Ulcers, - - 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 Neurological: Alert and Oriented x 3 Lines/Tubes/Other Access: Clean, Dry and Intact Peripheral IV Nutrition: Taking PO's Result Diagrams: 05/26/18 07:19 05/26/18 07:19 Microbiology and Other Data: Microbiology 05/25/18 11:21 Aerobic Blood Culture - Preliminary Blood Venous Klebsiella Pneumoniae Anaerobic Blood Culture - Preliminary Klebsiella Pneumoniae 05/25/18 11:41 Aerobic Blood Culture - Preliminary Blood Venous Klebsiella Pneumoniae Anaerobic Blood Culture - Preliminary Klebsiella Pneumoniae 05/25/18 11:41 Urine Culture - Preliminary Urine Klebsiella Pneumoniae Assess/Plan/Problems-Billing . Assessment: 68 yo man with Klebsiella UTI (prostatitis) and now, Klebsiella bacteremia. Expanding antibiotic coverage: IV Ciprofloxacin + IV Ceftriaxone. Continuing home medications ID consultation on Monday. - Patient Problems (1) Bacteremia due to Klebsiella pneumoniae Current Visit: Yes Status: Acute Priority: High Code(s): R78.81 - BACTEREMIA Comment: - UCx and BCX + for Klebsiella Pneumoniae - Ciprofloxacin 400 mg IV BID - Ceftriaxone 1 gram IV Daily - Toradol 30 mg IV Q6 hours, prn fever/pain - Tylenol 650 mg PO Q6 hours, prn fever/pain - Additional 3L NS bolus - 30 cc/kg bolus. - Check lactic acid in AM along with routine labs -- was normal earlier. - ID consultation requested - can be Monday when Dr. Howard is available. - Recheck BCX tomorrow --> need to clear cultures before dc adviseable. (2) Septicemia due to Klebsiella pneumoniae Current Visit: Yes Status: Acute Priority: High Code(s): A41.4 - SEPSIS DUE TO ANAEROBES Comment: - as above - UCx and BCX + for Klebsiella Pneumoniae - Ciprofloxacin 400 mg IV BID - Ceftriaxone 1 gram IV Daily - Toradol 30 mg IV Q6 hours, prn fever/pain - Tylenol 650 mg PO Q6 hours, prn fever/pain - Additional 3L NS bolus - 30 cc/kg bolus. - Check lactic acid in AM along with routine labs -- was normal earlier. - ID consultation requested - can be Monday when Dr. Howard is available. - Recheck BCX tomorrow --> need to clear cultures before dc adviseable. (3) CAD (coronary artery disease) Current Visit: No Status: Chronic Priority: High Code(s): I25.10 - ATHSCL HEART DISEASE OF [place] CORONARY ARTERY W/O ANG PCTRS Comment: - Continue Brilinta, ARB, BB. (4) Gout Current Visit: Yes Status: Chronic Priority: High Code(s): M10.9 - GOUT, UNSPECIFIED Comment: - Colchicine, prn - Allopurinol daily
[2018-05-26] MEDS: NS 0.9% 1000 ML* 2,000 ML IV ONE ×2 (19:45→21:04)
[2018-05-26] MEDS: cefTRIAXone(*) 1 GM in NS 0.9% 50 ML* 50 ML IVPB SCH (19:45)
[2018-05-26] MEDS: Melatonin 3 MG TAB PO PRN (21:02)
[2018-05-27] MEDS: Ciprofloxacin 400MG IVPREMIX(* 400 MG/200 ML BAG IVPB SCH ×2 (02:29→13:49)
[2018-05-27] MEDS: Heparin VIAL(*) 5000 UNITS/ML VIAL (FIVE THOUSAND) SUBCUT SCH ×3 (05:43→21:08)
[2018-05-27 07:13] LABS: ABS Basophils 0 10^3/ul (0-0.2); ABS Eosinophils 0.1 10^3/ul (0-0.6); ABS Lymphocytes 0.6 10^3/ul (1.0-4.8); ABS Monocytes 0.6 10^3/ul (0-0.8); ABS Neutrophils 3.2 10^3/ul (1.5-7.7); ABS Nucleated RBC 0 10^3/ul; Eosinophil % 2.8 % (0-6); Hematocrit 38 % (42-52); Lymphocyte % 12.4 % (25-47); Mean Corpuscular HGB Conc 34 g/dl (31-36); Mean Corpuscular Hemoglobin 31 pg (27-31); Mean Corpuscular Volume 91 fL (80-94); Mean Platelet Volume 8.7 um3 (7.4-10.4); Nucleated Red Blood Cells % 0.1; Platelet Count 105 10^3/ul (150-450); Red Blood Count 4.19 10^6/ul (4.00-5.40); Red Cell Distribution Width 14 % (10.5-15); White Blood Count 4.5 10^3/ul (3.5-10.8)
[2018-05-27 07:31] LABS: EGFR Non-African American 78.6 (>60)
[2018-05-27] MEDS: Acetaminophen TAB* 325 MG PO PRN (09:08)
[2018-05-27] MEDS: Ticagrelor* 90 MG TAB PO SCH ×2 (09:09→21:08)
[2018-05-27] MEDS: Allopurinol TAB* 100 MG PO SCH ×2 (09:09→11:39)
[2018-05-27] MEDS: Metoprolol Tartrate TAB* 25 MG PO SCH ×2 (09:10→21:08)
[2018-05-27] MEDS: Aspirin EC TAB* 81 MG TAB.EC PO SCH (09:10)
[2018-05-27] MEDS: Losartan TAB* 25 MG PO SCH (09:10)
[2018-05-27] MEDS: Atorvastatin* 40 MG TAB PO SCH (09:10)
--- NOTE | 2018-05-27 16:42 | PN ---
Subjective Date of Service: 05/27/18 Interval History: . No further fevers. Less pelvic pain. Subjective improvement in sx overall. Denies new s/sx. Tolerating IV abx well. visiting. gave updates on all data. BCX redrawn today. Family History: Unchanged from Admission Social History: Unchanged from Admission Past Medical History: Unchanged from Admission Objective Active Medications: . Acetaminophen (Tylenol Tab*) 650 mg PO Q4H PRN PRN Reason: FEVER/PAIN Last Admin: 05/27/18 09:08 Dose: 325 mg Allopurinol (Zyloprim Tab*) 100 mg PO QAM [facility] Last Admin: 05/27/18 11:39 Dose: Not Given Aspirin (Aspirin Ec Tab*) 81 mg PO DAILY [facility] Last Admin: 05/27/18 09:10 Dose: 81 mg Atorvastatin Calcium (Lipitor*) 40 mg PO DAILY [facility] Last Admin: 05/27/18 09:10 Dose: 40 mg Colchicine (Colcrys*) 0.6 mg PO DAILY PRN PRN Reason: PER PROTOCOL Heparin Sodium (Porcine) (Heparin Vial(*)) 5,000 units SUBCUT Q8HR [facility] Last Admin: 05/27/18 13:48 Dose: 5,000 units Ciprofloxacin/Dextrose (Cipro 400 Mg Ivpremix(*)) 400 mg in 200 mls @ 200 mls/ hr IVPB Q12H [facility] Last Admin: 05/27/18 13:49 Dose: 200 mls/hr Ceftriaxone Sodium 1 gm/ (Sodium Chloride) 50 mls @ 200 mls/hr IVPB Q24H [facility] Last Admin: 05/26/18 19:45 Dose: 200 mls/hr Ketorolac Tromethamine (Toradol Inj*) 30 mg IV PUSH Q6H PRN PRN Reason: PAIN Last Admin: 05/26/18 18:08 Dose: 30 mg Losartan Potassium (Cozaar Tab*) 25 mg PO DAILY [facility] Last Admin: 05/27/18 09:10 Dose: 25 mg Melatonin (Melatonin) 3 mg PO BEDTIME PRN; Protocol PRN Reason: SLEEP Last Admin: 05/26/18 21:02 Dose: 3 mg Metoprolol Tartrate (Lopressor Tab*) 12.5 mg PO BID [facility] Last Admin: 05/27/18 09:10 Dose: Not Given Morphine Sulfate (Morphine Vial*) 2 mg IV Q4H PRN PRN Reason: PAIN Nitroglycerin (Nitroglycerin Tab 0.4 Mg*) 0.4 mg SL Q5M PRN PRN Reason: PAIN - CHEST Ondansetron HCl (Zofran Inj*) 4 mg IV Q4H PRN PRN Reason: NAUSEA/VOMITING Oxycodone/Acetaminophen (Percocet 5/325 Tab*) 1 tab PO Q4H PRN PRN Reason: Pain Ticagrelor (Brilinta*) 90 mg PO BID [facility] Last Admin: 05/27/18 09:09 Dose: 90 mg . Vital Signs - 8 hr 05/27/18 10:58 Temperature 98.5 F Pulse Rate 63 Respiratory 17 Rate Blood Pressure 128/75 (mmHg) O2 Sat by Pulse 98 Oximetry Oxygen Devices in Use Now: None Appearance: NAD at present Eyes: No Scleral Icterus Ears/Nose/Mouth/Throat: NL Teeth, Lips, Gums Neck: NL Appearance and Movements; NL JVP Respiratory: Symmetrical Chest Expansion and Respiratory Effort Cardiovascular: NL Sounds; No Murmurs; No JVD Abdominal: NL Sounds; No Tenderness; No Distention Lymphatic: No Cervical Adenopathy Extremities: No Edema Skin: No Rash or Ulcers Neurological: Alert and Oriented x 3 Lines/Tubes/Other Access: Clean, Dry and Intact Peripheral IV Nutrition: Taking PO's Result Diagrams: 05/27/18 07:00 05/27/18 07:00 Microbiology and Other Data: Microbiology 05/25/18 11:21 Aerobic Blood Culture - Preliminary Blood Venous Klebsiella Pneumoniae Anaerobic Blood Culture - Preliminary Klebsiella Pneumoniae 05/25/18 11:41 Aerobic Blood Culture - Preliminary Blood Venous Klebsiella Pneumoniae Anaerobic Blood Culture - Preliminary Klebsiella Pneumoniae 05/25/18 11:41 Urine Culture - Preliminary Urine Klebsiella Pneumoniae Assess/Plan/Problems-Billing . Assessment: 68 yo man with Klebsiella UTI (prostatitis) and now, Klebsiella bacteremia. Expanded antibiotic coverage: IV Ciprofloxacin + IV Ceftriaxone. Continuing home medications ID consultation on Monday; PICC soon. - Patient Problems (1) Bacteremia due to Klebsiella pneumoniae Current Visit: Yes Status: Acute Priority: High Code(s): R78.81 - BACTEREMIA Comment: - UCx and BCX + for Klebsiella Pneumoniae - Ciprofloxacin 400 mg IV BID - Ceftriaxone 1 gram IV Daily - Toradol 30 mg IV Q6 hours, prn fever/pain - Tylenol 650 mg PO Q6 hours, prn fever/pain - Additional 3L NS bolus - 30 cc/kg bolus - on 05/26/18 - Check lactic acid in AM along with routine labs -- was normal earlier, and again. - ID consultation requested - can be Monday when Dr. Howard is available. - Rechecked BCX 05/27/18 --> need to clear cultures before dc adviseable. (2) Septicemia due to Klebsiella pneumoniae Current Visit: Yes Status: Acute Priority: High Code(s): A41.4 - SEPSIS DUE TO ANAEROBES Comment: - as above - UCx and BCX + for Klebsiella Pneumoniae - Ciprofloxacin 400 mg IV BID - Ceftriaxone 1 gram IV Daily - Toradol 30 mg IV Q6 hours, prn fever/pain - Tylenol 650 mg PO Q6 hours, prn fever/pain - Additional 3L NS bolus - 30 cc/kg bolus. - Check lactic acid in AM along with routine labs -- was normal earlier and again 05/27/18 - ID consultation requested - can be Monday when Dr. Howard is available. - Recheck BCX --> need to clear cultures before dc adviseable. (3) CAD (coronary artery disease) Current Visit: No Status: Chronic Priority: High Code(s): I25.10 - ATHSCL HEART DISEASE OF [place] CORONARY ARTERY W/O ANG PCTRS Comment: - Continue Brilinta, ARB, BB. (4) Gout Current Visit: Yes Status: Chronic Priority: High Code(s): M10.9 - GOUT, UNSPECIFIED Comment: - Colchicine, prn - Allopurinol daily
[2018-05-27] MEDS: Ketorolac INJ* 30 MG/ML 1 ML VIAL IV PUSH PRN (18:10)
[2018-05-27] MEDS: cefTRIAXone(*) 1 GM in NS 0.9% 50 ML* 50 ML IVPB SCH (18:10)
[2018-05-27] MEDS: Melatonin 3 MG TAB PO PRN (23:15)
[2018-05-28] MEDS: Ciprofloxacin 400MG IVPREMIX(* 400 MG/200 ML BAG IVPB SCH (01:40)
[2018-05-28] MEDS: Heparin VIAL(*) 5000 UNITS/ML VIAL (FIVE THOUSAND) SUBCUT SCH ×3 (05:39→21:23)
[2018-05-28] MEDS: Ticagrelor* 90 MG TAB PO SCH ×2 (08:27→21:23)
[2018-05-28] MEDS: Aspirin EC TAB* 81 MG TAB.EC PO SCH (08:27)
[2018-05-28] MEDS: Allopurinol TAB* 100 MG PO SCH (08:28)
[2018-05-28] MEDS: Losartan TAB* 25 MG PO SCH (08:28)
[2018-05-28] MEDS: Atorvastatin* 40 MG TAB PO SCH (08:28)
[2018-05-28] MEDS: Metoprolol Tartrate TAB* 25 MG PO SCH ×2 (08:28→21:24)
--- NOTE | 2018-05-28 12:02 | CONS ---
CONSULTATION REPORT: DATE OF CONSULT: 05/28/18 REQUESTING PHYSICIAN: Dr. Diaz. CONSULTING SERVICE: Infectious disease. REASON FOR CONSULT: Klebsiella bacteremia and urinary tract infection. IMPRESSION: 1. Acute bacterial prostatitis due to Klebsiella pneumoniae complicated by bacteremia sensitive to everything except ampicillin and nitrofurantoin. He is much improved, still has some urinary urgency and sensation of not emptying his bladder completely. 2. PENICILLIN allergy. 3. Coronary disease. 4. Obesity. 5. Denied history of prostatic hypertrophy or urinary retention. PLAN/RECOMMENDATIONS: 1. Ciprofloxacin 500 mg by mouth twice daily for three more weeks because of infection penetration to prostate. 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 There is likely increased risk of tendon injury in people exercising vigorously while taking the medication. 2. We will check an ultrasound of his kidney, ureter and bladder to make sure there is no stone disease anywhere. He should have followup with urologist, Dr. Cavazos for evaluation of any urinary retention or obstruction. To follow up with me in one to two weeks. He will call me if any fever, rash, diarrhea or worsening of his urinary symptoms. HISTORY OF PRESENT ILLNESS: This 68-year-old male admitted with urinary frequency and rigors. They came on suddenly night. He had a sensation of difficulty emptying his bladder, burning when he urinated and urinating more frequently in the setting of a baseline of up to urinate once a night. He came to the hospital on 05/25/18. White count was 11, he was febrile at 40 degrees celsius. He was started on broad-spectrum antibiotics, ciprofloxacin initially and then ceftriaxone was added as he continued to be febrile. Urinalysis showed blood, nitrites, leukocyte esterase, white cells and red cells. Blood culture 02/21 bottle growing Klebsiella pneumoniae as is the urine culture. Today, his only remaining symptom is the sensation that he cannot empty his bladder fully and still some urinary urgency but no fever, rigors or chills. His appetite is good, he is having no diarrhea. He has not had infection of his urinary tract in the past. PAST MEDICAL HISTORY: 1. Coronary disease with history of PCI. 2. Hypertension. 3. Dilated ascending aorta. 4. Palpitations. 5. Obstructive sleep apnea. 6. History of T cell leukemia treated with radiation. MEDICATIONS: 1. Tylenol. 2. Allopurinol. 3. Aspirin. 4. Lipitor. 5. Colchicine. 6. Heparin subcutaneous injection. 7. Losartan. 8. Melatonin. 9. Morphine as needed. 10. Nitroglycerin as needed. 11. Ceftriaxone 1 g a day. 12. Ciprofloxacin 400 mg IV every 12 hours. 13. Brilinta. ALLERGIES: ERYTHROMYCIN and PENICILLIN. FAMILY HISTORY: Father had bile duct cancer, mother at 90 due to heart disease. SOCIAL HISTORY: He lives in [place]. 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 He has no travel or sick contacts. REVIEW OF SYSTEMS: All negative for 14-point review of systems except as noted above in the history of present illness. PHYSICAL EXAM: Vital Signs: Temperature is 37, heart rate 50, respiratory rate 15, blood pressure 145/76, oxygen saturation 97% on room air. In general, he is awake, not in distress. Neurologic: He is oriented x3, follows all commands. HEENT: There is no conjunctival hemorrhage. Oropharynx without lesions. Neck is supple without mass. Heart is regular rate and rhythm without murmurs, rubs or gallops. Lungs are clear to auscultation bilaterally. Abdomen: Soft, nontender, nondistended. There is no suprapubic tenderness, there is no flank tenderness to palpation. Skin: There is no rash or splinter hemorrhage. There are well healed scars in the right upper chest. Musculoskeletal: No spine tenderness or joint synovitis. DIAGNOSTIC STUDIES/LAB DATA: White blood cell count 4, hemoglobin 13, platelets 105, creatinine is 0.9. Bilirubin is 0.7 down from 2.7. Please see impression and recommendations outlined above. These were discussed with Dr. Diaz. Thanks for asking me to see Mr. Richards in consultation. [id number]/[facility] #: [id number] [facility]ENT[facility]ug[facility]
--- NOTE | 2018-05-28 13:29 | RAD ---
INDICATION: Urinary tract infection, prostatitis evaluate for bladder stone. COMPARISON: Comparison is made with a prior CT scan of the abdomen from July 29, 2015. TECHNIQUE: Multiple real-time images of the kidneys and urinary bladder were obtained. FINDINGS: The kidneys are normal in size shape and echogenicity. The right kidney measured 12.7 x 6.8 x 5.9 cm and the left kidney measured 13.4 x 6.6 x 5.7 cm. There are multiple bilateral peripelvic renal cysts. There is no gross evidence for hydronephrosis. The bladder is normal in contour. No intraluminal abnormalities are seen. No bladder wall thickening is noted. There are bilateral ureteral jets present within the urinary bladder. The prostate gland measured 4.1 x 4.0 x 4.9 cm for a total volume of 42 ml. The prevoid volume was 438 ml and a post void residual was 233 ml. IMPRESSION: 1. SLIGHTLY ENLARGED PROSTATE GLAND AND LARGE POST VOID RESIDUAL. 2. MULTIPLE BILATERAL PERIPELVIC RENAL CYSTS.
--- NOTE | 2018-05-28 16:38 | PN ---
Subjective Date of Service: 05/28/18 Interval History: . no new s/sx feels much better saw Dr. Ascencion Kessler I spoke with Dr. Ortiz about this case and reviewed his consultation U/S bladder --> residual noted, but no stones. plan for dc in AM. . Family History: Unchanged from Admission Social History: Unchanged from Admission Past Medical History: Unchanged from Admission Objective Active Medications: . Acetaminophen (Tylenol Tab*) 650 mg PO Q4H PRN PRN Reason: FEVER/PAIN Last Admin: 05/27/18 09:08 Dose: 325 mg Allopurinol (Zyloprim Tab*) 100 mg PO QAM [facility] Last Admin: 05/28/18 08:28 Dose: Not Given Aspirin (Aspirin Ec Tab*) 81 mg PO DAILY [facility] Last Admin: 05/28/18 08:27 Dose: 81 mg Atorvastatin Calcium (Lipitor*) 40 mg PO DAILY [facility] Last Admin: 05/28/18 08:28 Dose: 40 mg Colchicine (Colcrys*) 0.6 mg PO DAILY PRN PRN Reason: PER PROTOCOL Heparin Sodium (Porcine) (Heparin Vial(*)) 5,000 units SUBCUT Q8HR [facility] Last Admin: 05/28/18 14:19 Dose: 5,000 units Ceftriaxone Sodium 1 gm/ (Sodium Chloride) 50 mls @ 200 mls/hr IVPB Q24H [facility] Last Admin: 05/27/18 18:10 Dose: 200 mls/hr Ketorolac Tromethamine (Toradol Inj*) 30 mg IV PUSH Q6H PRN PRN Reason: PAIN Last Admin: 05/27/18 18:10 Dose: 30 mg Losartan Potassium (Cozaar Tab*) 25 mg PO DAILY [facility] Last Admin: 05/28/18 08:28 Dose: 25 mg Melatonin (Melatonin) 3 mg PO BEDTIME PRN; Protocol PRN Reason: SLEEP Last Admin: 05/27/18 23:15 Dose: 3 mg Metoprolol Tartrate (Lopressor Tab*) 12.5 mg PO BID [facility] Last Admin: 05/28/18 08:28 Dose: Not Given Morphine Sulfate (Morphine Vial*) 2 mg IV Q4H PRN PRN Reason: PAIN Nitroglycerin (Nitroglycerin Tab 0.4 Mg*) 0.4 mg SL Q5M PRN PRN Reason: PAIN - CHEST Ondansetron HCl (Zofran Inj*) 4 mg IV Q4H PRN PRN Reason: NAUSEA/VOMITING Oxycodone/Acetaminophen (Percocet 5/325 Tab*) 1 tab PO Q4H PRN PRN Reason: Pain Ticagrelor (Brilinta*) 90 mg PO BID [facility] Last Admin: 05/28/18 08:27 Dose: 90 mg . Vital Signs - 8 hr 05/28/18 05/28/18 11:00 15:16 Temperature 98.0 F 98.7 F Respiratory 21 16 Rate Blood Pressure 133/60 148/72 (mmHg) O2 Sat by Pulse 98 99 Oximetry Oxygen Devices in Use Now: None Appearance: NAD Eyes: No Scleral Icterus Ears/Nose/Mouth/Throat: NL Teeth, Lips, Gums Neck: NL Appearance and Movements; NL JVP Respiratory: Symmetrical Chest Expansion and Respiratory Effort Cardiovascular: NL Sounds; No Murmurs; No JVD Abdominal: NL Sounds; No Tenderness; No Distention Lymphatic: No Cervical Adenopathy Extremities: No Edema Skin: No Rash or Ulcers Neurological: Alert and Oriented x 3 Lines/Tubes/Other Access: Clean, Dry and Intact Peripheral IV Nutrition: Taking PO's Result Diagrams: 05/27/18 07:00 05/27/18 07:00 Microbiology and Other Data: Microbiology 05/25/18 11:21 Aerobic Blood Culture - Preliminary Blood Venous Klebsiella Pneumoniae Anaerobic Blood Culture - Preliminary Klebsiella Pneumoniae 05/25/18 11:41 Aerobic Blood Culture - Preliminary Blood Venous Klebsiella Pneumoniae Anaerobic Blood Culture - Preliminary Klebsiella Pneumoniae 05/25/18 11:41 Urine Culture - Preliminary Urine Klebsiella Pneumoniae Assess/Plan/Problems-Billing . Assessment: 68 yo man with Klebsiella UTI (prostatitis) and now, Klebsiella bacteremia. Expanded antibiotic coverage 05/26-06/2018: IV Ciprofloxacin + IV Ceftriaxone---dc IV cipro today ... as per Dr. Howard -- convert to PO cipro tomorrow. Continuing other home medications ID consultation appreciated. - Patient Problems (1) Bacteremia due to Klebsiella pneumoniae Current Visit: Yes Status: Acute Priority: High Code(s): R78.81 - BACTEREMIA Comment: - UCx and BCX + for Klebsiella Pneumoniae - Ciprofloxacin 400 mg IV BID - dc'd now - continue tomorrow as per Dr. Howard - Ceftriaxone 1 gram IV Daily - Toradol 30 mg IV Q6 hours, prn fever/pain - Tylenol 650 mg PO Q6 hours, prn fever/pain - Additional 3L NS bolus - 30 cc/kg bolus - on 05/26/18 - Check lactic acid in AM along with routine labs -- was normal earlier, and again. - ID consultation is appreciated - Rechecked BCX 05/27/18 --> need to clear cultures before dc adviseable. (2) Septicemia due to Klebsiella pneumoniae Current Visit: Yes Status: Acute Priority: High Code(s): A41.4 - SEPSIS DUE TO ANAEROBES Comment: - as above - UCx and BCX + for Klebsiella Pneumoniae - Ciprofloxacin 400 mg IV BID -- off 05/28/18 - Ceftriaxone 1 gram IV Daily - Toradol 30 mg IV Q6 hours, prn fever/pain - Tylenol 650 mg PO Q6 hours, prn fever/pain - Additional 3L NS bolus - 30 cc/kg bolus. - Check lactic acid in AM along with routine labs -- was normal earlier and again 05/27/18 - ID consultation requested - can be Monday when Dr. Howard is available. - Recheck BCX --> need to clear cultures before dc adviseable. (3) CAD (coronary artery disease) Current Visit: No Status: Chronic Priority: High Code(s): I25.10 - ATHSCL HEART DISEASE OF [place] CORONARY ARTERY W/O ANG PCTRS Comment: - Continue Brilinta, ARB, BB. (4) Gout Current Visit: Yes Status: Chronic Priority: High Code(s): M10.9 - GOUT, UNSPECIFIED Comment: - Colchicine, prn - Allopurinol daily
[2018-05-28] MEDS: cefTRIAXone(*) 1 GM in NS 0.9% 50 ML* 50 ML IVPB SCH (18:18)
[2018-05-29] MEDS: Heparin VIAL(*) 5000 UNITS/ML VIAL (FIVE THOUSAND) SUBCUT SCH (05:14)
--- NOTE | 2018-05-29 06:43 | ED ---
Asim Warner Tiffany, scribed for Patrick Varela MD on 05/25/18 at 1113 . Abdominal Pain/Male - HPI Summary HPI Summary: 68 year old M sent from Dr. Painter, urology, to [facility] complains of lower abdominal pain since yesterday afternoon. The patient rates the pain 8/10 in severity. Symptoms aggravated by nothing. Symptoms alleviated by nothing. Patient reports fever, chills, urgency with little output. Denies vomiting/ diarrhea, hematuria. Has treated symptoms with Advil/[employer]. States he swam in [facility] two days ago. - History of Current Complaint Chief Complaint: EDAbdPain Stated Complaint: GROIN PAIN Time Seen by Provider: 05/25/18 10:58 Hx Obtained From: Patient Onset/Duration: Lasting Days - yesterday afternoon, Still Present Timing: Constant Severity Currently: Moderate Pain Intensity: 8 Pain Scale Used: 0-10 Numeric Location: Other - lower Aggravating Factor(s): Nothing Alleviating Factor(s): Nothing Associated Signs And Symptoms: Positive: Negative - hematuria, Fever, Other - chills, urgeny with little output. Negative: Vomiting, Diarrhea - Allergies/Home Medications Allergies/Adverse Reactions: Allergies Allergy/AdvReac Type Severity Reaction Status Date / Time erythromycin base Allergy Joint Pain Verified 05/25/18 10:45 Penicillins Allergy Rash Verified 05/25/18 10:45 enviromental Allergy Eyes Uncoded 07/28/15 09:43 Itchy/Swollen/Red/Watery Home Medications: Home Medications Allopurinol TAB* [Zyloprim 100 MG TAB*] 100 mg PO QAM 05/25/18 [History Confirmed 05/25/18] Aspirin EC TAB* [Ecotrin EC Low Dose 81 MG*] 81 mg PO DAILY 05/25/18 [History Confirmed 05/25/18] Atorvastatin* [Lipitor*] 40 mg PO DAILY 05/25/18 [History Confirmed 05/25/18] Colchicine* [Colcrys*] 0.6 mg PO DAILY PRN 05/25/18 [History Confirmed 05/25/18] Losartan TAB* [Cozaar TAB*] 25 mg PO DAILY 05/25/18 [History Confirmed 05/25/18] Metoprolol Tartrate TAB* [Lopressor TAB*] 12.5 mg PO BID 05/25/18 [History Confirmed 05/25/18] Nitroglycerin TAB 0.4 MG* 0.4 mg SL Q5M PRN 05/25/18 [History Confirmed 05/25/18 ] Ticagrelor* [Brilinta*] 90 mg PO BID 05/25/18 [History Confirmed 05/25/18] PMH/Surg Hx/FS Hx/Imm Hx Previously Healthy: No Endocrine/Hematology History: Denies: Hx Diabetes, Hx Thyroid Disease Cardiovascular History: Reports: Hx Aneurysm, Hx Hypertension, Other Cardiovascular Problems/Disorders - "aortic condition" Denies: Hx Pacemaker/ICD, Hx Peripheral Vascular Disease Respiratory History: Reports: Hx Sleep Apnea Denies: Hx Asthma, Hx Chronic Obstructive Pulmonary Disease (COPD), Other Respiratory Problems/Disorders - DENIES Musculoskeletal History: Reports: Hx Gout Denies: Hx Arthritis, Hx Rheumatoid Arthritis, Hx Osteoporosis Sensory History: Denies: Hx Cataracts, Hx Contacts or Glasses, Hx Glaucoma, Hx Hearing Aid Opthamlomology History: Denies: Hx Cataracts, Hx Contacts or Glasses, Hx Glaucoma Neurological History: Denies: Hx Headaches, Hx Seizures, Hx Spinal Cord Injury, Hx Transient Ischemic Attacks (TIA) Psychiatric History: Denies: Hx Anxiety, Hx Depression, Hx Panic Disorder - Cancer History Cancer Type, 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 Hx Chemotherapy: Yes - 40 yrs ago Hx Radiation Therapy: Yes - Surgical History Surgery Procedure, Year, and Place: Coronary angiography, left heart catherization, left ventriculogram 11/27/17 Infectious Disease History: No Infectious Disease History: Denies: History Other Infectious Disease, Traveled Outside the [place] in Last 30 Days - Family History Known Family History: Positive: Other - Father had bile duct CA - Social History Alcohol Use: Rare Alcohol Amount: 1 drink per year Hx Substance Use: No Substance Use Type: Reports: None Hx Tobacco Use: No Smoking Status (MU): Never Smoked Tobacco Review of Systems Positive: Fever, Chills Negative: Erythema Negative: Sore Throat Negative: Chest Pain Negative: Shortness Of Breath, Cough Positive: Abdominal Pain - lower. Negative: Vomiting, Diarrhea, Nausea Positive: urgency - with little output. Negative: dysuria, hematuria Negative: Myalgia, Edema Negative: Rash Neurological: Negative - Dizziness All Other Systems Reviewed And Are Negative: Yes Physical Exam - Summary Physical Exam Summary: Constitutional: Well-developed, Well-nourished, Alert. (-) Distressed Skin: Hot to touch HENT: Normocephalic; Atraumatic Eyes: Conjunctiva normal Neck: Musculoskeletal ROM normal neck. (-) JVD, (-) Stridor, (-) Tracheal deviation Cardio: Rhythm regular, rate normal, Heart sounds normal; Intact distal pulses; The pedal pulses are 2+ and symmetric. Radial pulses are 2+ and symmetric. (-) Murmur Pulmonary/Chest wall: Effort normal. (-) Respiratory distress, (-) Wheezes, (-) Rales Abd: Soft, (-), epigastric tenderness, (-) Distension, (-) Guarding, (-) Rebound RECTAL EXAM: The prostate is enlarged but not boggy Musculoskeletal: (-) Edema Lymph: (-) Cervical adenopathy Neuro: Alert, Oriented x3 Psych: Mood and affect Normal Triage Information Reviewed: Yes Vital Signs On Initial Exam: Initial Vitals Temp Pulse Resp BP Pulse Ox 100.0 F 96 18 125/60 98 05/25/18 10:39 05/25/18 10:39 05/25/18 10:39 05/25/18 10:39 05/25/18 10:39 Vital Signs Reviewed: Yes Diagnostics - Vital Signs Vital Signs Temp Pulse Resp BP Pulse Ox 05/25/18 10:39 100.0 F 96 18 125/60 98 - Laboratory Result Diagrams: 05/25/18 11:21 05/25/18 11:21 Lab Statement: Any lab studies that have been ordered have been reviewed, and results considered in the medical decision making process. Abdominal Pain Fem Course/Dx - Course Course Of Treatment: 68 y/o M c/o abdominal pain and fever. In ED course, patient given Tylenol, Cipro, and IV fluids. Bedside US Bladder showed 50cc urine. Patient admitted to Dr. Diaz, hospitalist. - Diagnoses Differential Diagnosis/HQI/PQRI: Prostatitis, Urinary Tract Infection, Other - sepsis Provider Diagnoses: Prostatitis, Sepsis - Provider Notifications Discussed Care Of Patient With: Sathya Diaz Time Discussed With Above Provider: 13:05 Instructed by Provider To: Other - Dr. Diaz, hospitalist, agrees to admit patient. Discharge - Sign-Out/Discharge Documenting (check all that apply): Discharge/Admit/Transfer - Admit - Discharge Plan The documentation as recorded by the yevgeniy, Cris Dailey SCRIBE accurately reflects the service I personally performed and the decisions made by , Patrick Varela MD.
--- NOTE | 2018-05-29 07:44 | PN ---
Hospitalist Progress Note Date of Service: 05/29/18 . HOSPITALIST DISCHARGE NOTE: See dc instructions and summary by me. Patient stable for dc dc instructions reviewed with the patient at the bedside. DC patient home today.
[2018-05-29 08:15] VITALS: BP 133/84
[2018-05-29] MEDS: Metoprolol Tartrate TAB* 25 MG PO SCH (08:15)
[2018-05-29] MEDS: Ticagrelor* 90 MG TAB PO SCH (08:15)
[2018-05-29] MEDS: Losartan TAB* 25 MG PO SCH (08:15)
[2018-05-29] MEDS: Atorvastatin* 40 MG TAB PO SCH (08:15)
[2018-05-29] MEDS: Aspirin EC TAB* 81 MG TAB.EC PO SCH (08:15)
[2018-05-29] MEDS: Allopurinol TAB* 100 MG PO SCH (08:15)
--- NOTE | 2018-05-30 13:07 | DS ---
CC: Dr. Araiza; Dr. Painter; Dr. Howard * DISCHARGE SUMMARY: DATE OF ADMISSION: 05/25/18 DATE OF DISCHARGE: 05/29/18 STATUS DURING HOSPITALIZATION: Inpatient. PRIMARY CARE PROVIDER: Dr. Kalpesh Araiza, [facility] OUTPATIENT MACHINE DEICER ELEMENT WINDER: Dr. Janell Rico. OUTPATIENT UROLOGIST: Dr. Painter. INFECTIOUS DISEASE BUSINESS CONTROL MANAGER: Dr. Miguel Howard. PRINCIPAL DISCHARGE DIAGNOSES: Klebsiella pneumoniae septicemia secondary to klebsiella urinary tract infection and prostatitis. SECONDARY DIAGNOSES: 1. Hypertension. 2. Coronary artery disease - status post cardiac cath in November 2017 with severe OM lesion with drug-eluting stent. 3. Palpitations. 4. Sleep apnea. 5. Mildly dilated ascending aorta with dimensions less than 4 cm. 6. Gout. DISCHARGE MEDICATION REGIMEN: New: 1. Ciprofloxacin 500 mg by mouth twice daily for three weeks, then stop (one month supply given with instructions to stop after three weeks with option to treat further at discretion of outpatient physicians). No other medication prescriptions, but continue: 1. Allopurinol 100 mg by mouth daily, as needed. 2. Aspirin enteric-coated 81 mg by mouth daily. 3. Lipitor 40 mg by mouth daily. 4. Colchicine 0.6 mg by mouth daily as needed (gout). 5. Losartan 25 mg by mouth daily. 6. Lopressor 12.5 mg by mouth twice daily. 7. Nitroglycerin tab 0.4 mg sublingually q.5 minutes p.r.n. chest pain. 8. Brilinta 90 mg by mouth daily. HISTORY OF PRESENT ILLNESS AND HOSPITAL COURSE: Please see the H and P by me on 05/25/18. In brief, Mr. Richards is a 68-year-old gentleman, who presents with one to two days of lower abdominal pain that was severe in intensity and was associated with urination. There was a burning and stabbing sensation. The patient tried outpatient analgesia (NSAIDs), but this did not help. The patient was febrile at presentation. His urinalysis was grossly abnormal. His prostate exam was consistent with prostatitis in the emergency room. The patient was admitted to the hospital initially on observation status. Blood cultures and urine cultures all grew Klebsiella pneumoniae quickly. The klebsiella was found sensitive to ciprofloxacin, but also ceftriaxone. The patient had high fevers on hospital day 2, prompting the dual coverage with IV ceftriaxone until sensitivities had responded. The patient was seen in consultation by Dr. Miguel Howard of Infectious Disease. Dr. Howard agreed with the therapy and recommended 3 weeks of oral ciprofloxacin. Education was rendered regarding possible side effects of ciprofloxacin, in particular tendon rupture given the patient is currently training for a triathlon. He agreed to end his triathlon training through the duration of his treatment and some time beyond. A bladder ultrasound showed a mild residual in urine, but no obstructive stones. The patient defervesced with the addition of IV ceftriaxone and his white count normalized and his vital signs were reassuring including his temperature remaining in the normal range. The patient is stable for discharge on 05/29/18 and feeling remarkably better. He is ambulating independently. He is accompanied by his . He is in good spirits and will follow up with his outpatient physicians. He is going to follow up with a urology appointment and he wishes to make his own primary care appointment. Dr. Miguel Howard will reach out to him and follow up in the outpatient setting. TIME SPENT: Total time taken to discharge Mr. Richards was 45 minutes, greater than half the time was spent at the bedside going over the discharge instructions and reviewing the major results during the hospitalization. CONDITION ON DISCHARGE: Stable. Return to ED instructions were rendered to the patient; that he should come back to the emergency room if he has any worrisome symptoms included but not limited to chest pain, shortness of breath, lightheadedness, high fevers, dysuria, or other worrisome symptoms that do not angel quickly. [id number]/[facility] #: [id number] MAX
== END 2018-05-29 10:30 | disposition home or self-care (01) | DRG 720 ==
LOC: ED 10:37 → INTOOBSV 14:10 → MED 14:10 → OBSVTOIN 18:31
PROVIDERS: ADMIT Internal Medicine; ATTEND Internal Medicine
DX: A41.52 Sepsis due to Pseudomonas (principal); N39.0 Urinary tract infection, site not specified; C94.81 Other specified leukemias, in remission; B96.1 Klebsiella pneumoniae [K. pneumoniae] as the cause of diseases classified elsewhere; N41.9 Inflammatory disease of prostate, unspecified; I25.10 Atherosclerotic heart disease of native coronary artery without angina pectoris; I11.9 Hypertensive heart disease without heart failure; R00.2 Palpitations; I71.2 Thoracic aortic aneurysm, without rupture; M10.9 Gout, unspecified; G47.33 Obstructive sleep apnea (adult) (pediatric); R33.9 Retention of urine, unspecified; Z95.5 Presence of coronary angioplasty implant and graft; Z79.82 Long term (current) use of aspirin; Z79.899 Other long term (current) drug therapy; Z88.1 Allergy status to other antibiotic agents; Z88.0 Allergy status to penicillin; Z80.0 Family history of malignant neoplasm of digestive organs; Z82.49 Family history of ischemic heart disease and other diseases of the circulatory system; E66.9 Obesity, unspecified; Z68.28 Body mass index [BMI] 28.0-28.9, adult
CPT/HCPCS: 36415; 76770; 80048; 80053; 80076; 81003; 81015; 83605; 83735; 84100; 85025; 85610; 85730; 87040; 87077; 87086; 87186; 87205; 99283; A9270-GY; J0696; J0744; J1644; J1885

== ENCOUNTER 2019-11-09 11:49 | Emergency (ER) | payer BC, MEDICARE ==
[2019-11-09 11:59] VITALS: BP 146/76
--- NOTE | 2019-11-09 12:23 | UC ---
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 He has a one day history of urgency and mild dysuria, without fever, chills, myalgias or systemic symptoms. He has suprpubic pressure and urgency. He was recently changed from alfuzosin to Cialis for treatment of BPH and ED. New sexual partner about 6 months ago,and he would like to be screened for STI' s for her reassurance. - History of Current Complaint Chief Complaint: UCGU Stated Complaint: BURNING URINATION Time Seen by Provider: 11/09/19 12:11 Hx Obtained From: Patient Onset/Duration: Sudden Onset, Lasting Days - 2 Timing: Constant Severity Initially: Mild Severity Currently: Moderate Pain Intensity: 5 Location: Suprapubic Character: Colicy Aggravating Factor(s): Voiding Associated Signs And Symptoms: Negative: Back Pain, Fever, Hematuria, Rectal Pain - Allergies/Home Medications Allergies/Adverse Reactions: Allergies Allergy/AdvReac Type Severity Reaction Status Date / Time acetaminophen [From Tylenol] Allergy GI Upset Verified 11/09/19 12:00 erythromycin base Allergy Joint Pain Verified 11/09/19 12:00 Penicillins Allergy Rash Verified 11/09/19 12:00 enviromental Allergy Eyes Uncoded 11/09/19 12:00 Itchy/Swollen/Red/Watery Home Medications: Home Medications Rosuvastatin Calcium 20 mg PO DAILY 11/09/19 [History Confirmed 11/09/19] Sildenafil Citrate [Viagra] 50 mg PO DAILY PRN 11/09/19 [History Confirmed 11/09] Tadalafil [Cialis] 5 mg PO DAILY PRN 11/09/19 [History Confirmed 11/09/19] Testosterone Propionate 200 mg IM SEE INSTRUCTIONS 11/09/19 [History Confirmed 11/09/19] PMH/Surg Hx/FS Hx/Imm Hx Previously Healthy: Yes Cardiovascular History: Cardiac Disease, Hypertension GI/ History: Other - BPH hemicolectomy in 2018 due to large obstructing polyp (benign) - Surgical History Surgical History: Yes Surgery Procedure, Year, and Place: Coronary angiography, left heart catherization, left ventriculogram 11/27/17 [facility] colonectomy 01/07 - Family History Known Family History: Positive: Other - Father had bile duct CA - Social History Occupation: Employed Full-time Alcohol Use: Rare Alcohol Amount: 1 drink per year Substance Use Type: None Smoking Status (MU): Never Smoked Tobacco - Immunization History Most Recent Influenza Vaccination: 07/2017 Most Recent Pneumonia Vaccination: 2017 Review of Systems All Other Systems Reviewed And Are Negative: Yes Constitutional: Positive: Negative Skin: Positive: Negative Eyes: Positive: Negative ENT: Positive: Negative Respiratory: Positive: Negative Cardiovascular: Positive: Other - hx of CAD and past stenting Gastrointestinal: Positive: Other - post hemicolectomy. Genitourinary: Positive: Dysuria, Urgency Motor: Positive: Negative Neurovascular: Positive: Negative Musculoskeletal: Positive: Negative - past hx of gout, resolved since he became a vegetarian. Neurological: Positive: Negative Psychological: Positive: Negative Is Patient Immunocompromised?: No Physical Exam Triage Information Reviewed: Yes Appearance: Well-Appearing, No Pain Distress Vital Signs: Initial Vital Signs Temp 97.4 F 11/09/19 11:56 Pulse 56 11/09/19 11:56 Resp 16 11/09/19 11:56 BP 146/76 11/09/19 11:56 Pulse Ox 100 11/09/19 11:56 ENT: Positive: Pharynx normal Neck: Positive: Supple, Nontender, No Lymphadenopathy Respiratory: Positive: Lungs clear, Normal breath sounds Cardiovascular: Positive: RRR, No Murmur Abdomen Description: Positive: Nontender, No Organomegaly, Soft. Negative: CVA Tenderness (R), CVA Tenderness (L) Musculoskeletal Exam: Normal Neurological Exam: Normal Psychological Exam: Normal Skin Exam: Normal Diagnostics - Laboratory Lab Results: UA completely normal. Complaint Male Course/Dx - Course Course Of Treatment: Suspect prostatitis based on history, and he has typically used ciprofloxaicn for treatment. Labs drawn, and he also requests testing for STI's as per notes. Follow up with Dr. Cavazos. - Differential Dx/Diagnosis Differential Diagnosis/HQI/PQRI: Prostatitis, Urinary Tract Infection Provider Diagnosis: Prostatitis Discharge ED - Sign-Out/Discharge Documenting (check all that apply): Patient Departure All imaging exams completed and their final reports reviewed: No Studies - Discharge Plan Condition: Good Disposition: HOME Prescriptions: Ciprofloxacin TAB* [Cipro 500 MG TAB*] 500 mg PO BID #20 tab Patient Education Materials: Prostatitis (ED) Referrals: Adeel Araiza MD [Primary Care Provider] - Additional Instructions: Begin cipro for treatment of suspected prostatitis, and follow up with Dr. Cavazos. Labs have been drawn, and you will be notified if the results change the treatment plan. Testing for HIV, CHlamydia, gonorrhea and syphilis has been done; results of these tests as well as the urine culture will take 2 to 3 days. - Billing Disposition and Condition Condition: GOOD Disposition: Home
[2019-11-09 14:20] LABS: ABS Eosinophils 0.1 10^3/ul (0-0.6); ABS Lymphocytes 1.4 10^3/ul (1.0-4.8); ABS Monocytes 0.8 10^3/ul (0-0.8); ABS Neutrophils 7.6 10^3/ul (1.5-7.7); Eosinophil % 0.8 %; Hematocrit 52 % (42-52); Hemoglobin 17.6 g/dL (14.0-18.0); Lymphocyte % 13.9 %; Mean Corpuscular HGB Conc 34 g/dL (31-36); Mean Corpuscular Hemoglobin 31 pg (27-31); Mean Corpuscular Volume 90 fL (80-94); Mean Platelet Volume 9.4 fL (7.4-10.4); Nucleated Red Blood Cells % 0.1; Platelet Count 203 10^3/uL (150-450); Red Blood Count 5.77 10^6 /uL (4.18-5.48); Red Cell Distribution Width 14 % (10-15)
[2019-11-09 14:28] LABS: Albumin 4.6 g/dL (3.2-5.2); BUN/Creatinine Ratio 16.3 (8-20); Calcium 9.9 mg/dL (8.6-10.3); EGFR African American 98.4 (>60); EGFR Non-African American 81.3 (>60); Globulin 2.3 g/dL (2-4); Potassium 4.4 mmol/L (3.5-5.0); Total Bilirubin 1.4 mg/dL (0.2-1.0); Total Protein 6.9 g/dL (6.4-8.9)
[2019-11-09 14:58] LABS: HIV 4th Generation Nonreactive (Nonreactive)
--- NOTE | 2019-11-10 07:16 | UC ---
- Progress Note Progress Note: Please call t advise that lab work shows a normal white count, normal blood count, normal kidney function. HIV testing is negative. Still pending are: urine culture, testing for Chlamydia, gonorrhea and syphilis. He started cipro yesterday for suspected prostatitis and is meant to follow up with Dr. Cavazos. Course/Dx - Diagnoses Provider Diagnoses: Prostatitis Discharge ED - Sign-Out/Discharge Documenting (check all that apply): Post-Discharge Follow Up All imaging exams completed and their final reports reviewed: No Studies - Discharge Plan Condition: Good Disposition: HOME Prescriptions: Ciprofloxacin TAB* [Cipro 500 MG TAB*] 500 mg PO BID #20 tab Patient Education Materials: Prostatitis (ED) Referrals: Adeel Araiza MD [Primary Care Provider] - Additional Instructions: Begin cipro for treatment of suspected prostatitis, and follow up with Dr. Cavazos. Labs have been drawn, and you will be notified if the results change the treatment plan. Testing for HIV, CHlamydia, gonorrhea and syphilis has been done; results of these tests as well as the urine culture will take 2 to 3 days. - Billing Disposition and Condition Condition: GOOD Disposition: Home
[2019-11-11 14:06] LABS: Chlamydia trachomatis NAA Negative (Negative); Neisseria gonorrhoeae (GC) NAA Negative (Negative)
== END 2019-11-09 13:00 | disposition home or self-care (01) ==
LOC: UCEAST 11:49
DX: N41.9 Inflammatory disease of prostate, unspecified (principal); I10 Essential (primary) hypertension; Z88.6 Allergy status to analgesic agent; Z88.1 Allergy status to other antibiotic agents; Z88.0 Allergy status to penicillin; Z91.09 Other allergy status, other than to drugs and biological substances
CPT/HCPCS: 36415; 80053; 81003; 85025; 86780; 87086; 87389; 87491; 87591; 99212; G0463